=== PATIENT | female | born 1955 | race Caucasian/White ===

== ENCOUNTER 2021-07-01 19:52 | Inpatient (IN) | payer BC ==
[2021-07-01] MEDS ORDERED: REMDESIVIR 200 MG in Sodium Chloride 0.9% 250 ML IV ONE (19:55)
--- NOTE | 2021-07-01 20:06 | EDM.PDOC ---
<Azam Redding W - Last Filed: 07/01/21 21:04> ED HPI GENERAL MEDICAL PROBLEM - General Chief Complaint: Respiratory Problem Stated Complaint: hypoxia Time Seen by Provider: 07/01/21 19:52 Source of Information: Reports: Patient History Limitations: Reports: No Limitations - History of Present Illness INITIAL COMMENTS - FREE TEXT/NARRATIVE: Pt. presents to ER with complaints of cough, increased shortness of breath. She has been diagnosed with covid 19 yesterday. Pt. has been feeling poorly since last week, thought she had bronchitis. Pt. has not had her covid vaccination. She states that she does not want to be placed on a ventilator. Daughter states that the patient seems more fatigued. She has a home pulse oximeter. She was consistently in the 87% to 89% range today and today she was appearing more dyspneic and O2 sats were in the high 70s-low 80s range. Overall, pt. denies any chest pain. She states she has increased dyspnea when she is active. Denies any sore throat. No rhinorrhea. No nausea, vomiting, or diarrhea. Denies any substernal chest pain. No jaw, arm, neck or back pain. Onset: Today Onset Date: 07/01/21 Location: Reports: Chest, Generalized - Related Data Allergies Allergy/AdvReac Type Severity Reaction Status Date / Time No Known Allergies Allergy Verified 07/01/21 19:54 ED ROS GENERAL - Review of Systems Review Of Systems: See Below Constitutional: Reports: No Symptoms HEENT: Reports: No Symptoms Respiratory: Reports: Shortness of Breath, Cough Cardiovascular: Reports: No Symptoms Endocrine: Reports: No Symptoms GI/Abdominal: Reports: No Symptoms : Reports: No Symptoms Musculoskeletal: Reports: No Symptoms Skin: Reports: No Symptoms Neurological: Reports: No Symptoms Psychiatric: Reports: No Symptoms Hematologic/Lymphatic: Reports: No Symptoms Immunologic: Reports: No Symptoms ED EXAM, GENERAL - Physical Exam Exam: See Below Exam Limited By: No Limitations General Appearance: Alert, WD/WN, No Apparent Distress Throat/Mouth: Normal Inspection, Normal Lips, Normal Teeth, Normal Gums, Normal Oropharynx, Normal Voice, No Airway Compromise Head: Atraumatic, Normocephalic Neck: Normal Inspection, Supple, Non-Tender Respiratory/Chest: No Respiratory Distress, Decreased Breath Sounds Cardiovascular: Normal Peripheral Pulses, Regular Rate, Rhythm, No Edema, No JVD Peripheral Pulses: 4+: Radial (L) GI/Abdominal: Soft, Non-Tender, No Distention, No Mass (Female) Exam: Deferred Rectal (Female) Exam: Deferred Back Exam: Normal Inspection, Full Range of Motion Extremities: Normal Inspection, Normal Range of Motion, Non-Tender, No Pedal Edema, Normal Capillary Refill Neurological: Alert, Oriented, CN II-XII Intact, Normal Cognition, Normal Gait, Normal Reflexes, No Motor/Sensory Deficits Psychiatric: Normal Affect, Flat Affect Skin Exam: Warm, Dry, Intact, Pallor Departure - Departure Disposition: Admitted As Inpatient 67 Clinical Impression: COVID-19, Diabetes mellitus without complication, without long-term current use of insulin, Essential (primary) hypertension, Hyperlipidemia, Depression - Discharge Information Referrals: Kelin Prieto PA-C [Primary Care Provider] - Forms: ED Department Discharge <Román Brambila - Last Filed: 07/01/21 21:52> Course - Orders/Labs/Meds Orders: Active Orders 24 hr Category Date Time Status Nurse Communication: Isolation [RC] ASDIRECTED Care 07/01/21 19:56 Active Chest 1V Frontal [CR] Stat Exams 07/01/21 19:56 Taken BILIRUBIN DIRECT [CHEM] DAILY Lab 07/02/21 20:00 Ordered BILIRUBIN DIRECT [CHEM] DAILY Lab 07/03/21 20:00 Ordered BILIRUBIN DIRECT [CHEM] DAILY Lab 07/04/21 20:00 Ordered BILIRUBIN DIRECT [CHEM] DAILY Lab 07/05/21 20:00 Ordered BLOOD GAS ARTERIAL,POC [POC] Stat Lab 07/01/21 19:55 Ordered COMPREHENSIVE METABOLIC PN,CMP [CHEM] DAILY Lab 07/02/21 20:00 Ordered COMPREHENSIVE METABOLIC PN,CMP [CHEM] DAILY Lab 07/03/21 20:00 Ordered COMPREHENSIVE METABOLIC PN,CMP [CHEM] DAILY Lab 07/04/21 20:00 Ordered COMPREHENSIVE METABOLIC PN,CMP [CHEM] DAILY Lab 07/05/21 20:00 Ordered FERRITIN [CHEM] Routine Lab 07/01/21 20:30 Received PROCALCITONIN [REF] Stat Lab 07/01/21 20:30 Received UA W/ROMIE RFLX IF INDICATED [URIN] Routine Lab 07/01/21 19:55 Ordered Isolation [COMM] Stat Oth 09/17/21 19:55 Active Labs: Laboratory Tests 07/01/21 07/01/21 07/01/21 Range/Units 20:30 20:30 20:30 WBC 4.5 (4.0-10.2) K/uL RBC 4.92 (3.77-5.09) M/uL Hgb 13.8 (11.7-15.5) g/dL Hct 41.3 (34.0-46.0) % MCV 83.9 L (84.0-98.0) fL MCH 28.0 L (28.2-33.3) pg MCHC 33.4 (31.7-36.0) g/dL RDW 13.8 (11.2-14.1) % Plt Count 144 L (150-350) K/uL Neut % (Auto) 83.7 H (45.0-80.0) % Lymph % (Auto) 11.6 (10.0-50.0) % Stanton % (Auto) 4.5 (2.0-14.0) % Eos % (Auto) 0.2 (0.0-5.0) % Baso % (Auto) 0.0 (0.0-2.0) % Neut # (Auto) 3.74 (1.40-7.00) K/uL Lymph # (Auto) 0.52 (0.50-3.50) K/uL Stanton # (Auto) 0.20 (0.00-1.00) K/uL Eos # (Auto) 0.01 (0.00-0.50) K/uL Baso # (Auto) 0.00 (0.00-0.20) K/uL PT (9.5-12.0) SEC INR APTT 26.8 (24.5-32.8) SEC D-Dimer, Quantitative (0-400) ng/mL Sodium 133 L (136-145) mmol/L Potassium 4.6 (3.5-5.1) mmol/L Chloride 96 L (98-107) mmol/L Carbon Dioxide 28.7 (21.0-32.0) mmol/L Anion Gap 12.9 (7-15) meq/L BUN 13 (7-18) mg/dL Creatinine 0.88 (0.51-1.17) mg/dL Est Cr Clr Drug Dosing 53.43 mL/min Estimated GFR (MDRD) > 60 mL/min Glucose 467 H* (70-99) mg/dL Lactic Acid (0.4-2.0) mmol/L Calcium 8.7 (8.5-10.1) mg/dL Total Bilirubin 0.5 (0.2-1.0) mg/dL Direct Bilirubin 0.2 (0.0-0.2) mg/dL AST 84 H (15-37) U/L ALT 53 (12-78) U/L Alkaline Phosphatase 105 (46-116) IU/L Lactate Dehydrogenase 435 H (81-234) U/L Creatine Kinase 184 (26-308) U/L C-Reactive Protein 5.8 H (<=0.9) mg/dL Total Protein 7.0 (6.4-8.2) g/dL Albumin 3.1 L (3.4-5.0) g/dL 07/01/21 07/01/21 07/01/21 Range/Units 20:30 20:30 20:30 WBC (4.0-10.2) K/uL RBC (3.77-5.09) M/uL Hgb (11.7-15.5) g/dL Hct (34.0-46.0) % MCV (84.0-98.0) fL MCH (28.2-33.3) pg MCHC (31.7-36.0) g/dL RDW (11.2-14.1) % Plt Count (150-350) K/uL Neut % (Auto) (45.0-80.0) % Lymph % (Auto) (10.0-50.0) % Stanton % (Auto) (2.0-14.0) % Eos % (Auto) (0.0-5.0) % Baso % (Auto) (0.0-2.0) % Neut # (Auto) (1.40-7.00) K/uL Lymph # (Auto) (0.50-3.50) K/uL Stanton # (Auto) (0.00-1.00) K/uL Eos # (Auto) (0.00-0.50) K/uL Baso # (Auto) (0.00-0.20) K/uL PT 9.1 L (9.5-12.0) SEC INR 0.9 APTT (24.5-32.8) SEC D-Dimer, Quantitative 474 H (0-400) ng/mL Sodium (136-145) mmol/L Potassium (3.5-5.1) mmol/L Chloride (98-107) mmol/L Carbon Dioxide (21.0-32.0) mmol/L Anion Gap (7-15) meq/L BUN (7-18) mg/dL Creatinine (0.51-1.17) mg/dL Est Cr Clr Drug Dosing mL/min Estimated GFR (MDRD) mL/min Glucose (70-99) mg/dL Lactic Acid 2.2 H (0.4-2.0) mmol/L Calcium (8.5-10.1) mg/dL Total Bilirubin (0.2-1.0) mg/dL Direct Bilirubin (0.0-0.2) mg/dL AST (15-37) U/L ALT (12-78) U/L Alkaline Phosphatase (46-116) IU/L Lactate Dehydrogenase (81-234) U/L Creatine Kinase (26-308) U/L C-Reactive Protein (<=0.9) mg/dL Total Protein (6.4-8.2) g/dL Albumin (3.4-5.0) g/dL Meds: Medications Discontinued Medications Generic Name Dose Route Start Last Admin Trade Name Freq PRN Reason Stop Dose Admin Remdesivir 200 mg/ Sodium 250 mls @ 250 mls/hr 07/01/21 19:55 07/01/21 20:49 Chloride IV 07/01/21 20:54 250 mls/hr ONETIME ONE Administration - Re-Assessments/Exams Free Text/Narrative Re-Assessment/Exam: 07/01/21 21:47 Patient is picked up at shift change. She presented to the ED with shortness of breath worsening through the day. Diagnosed with COVID-19 yesterday. Medical history is positive for diabetes, hypertension, hypothyroidism, hyperlipidemia and depression. O2 sats improved significantly with supplemental oxygen per nasal cannula. Decision was made to admit for oxygen supplementation, monitoring, and remdesivir. She was given the initial dose of remdesivir in the ED. We will start her on her regular medications tomorrow. Departure - Departure Time of Disposition: :00 Condition: Fair - Discharge Information *PRESCRIPTION DRUG MONITORING PROGRAM REVIEWED*: Not Applicable *COPY OF PRESCRIPTION DRUG MONITORING REPORT IN PATIENT JACK: Not Applicable - Problem List & Annotations (1) COVID-19 SNOMED Code(s): 566484349 Code(s): U07.1 - COVID-19 Status: Acute Current Visit: Yes (2) Depression SNOMED Code(s): 05398986 Code(s): F32.9 - MAJOR DEPRESSIVE DISORDER, SINGLE EPISODE, UNSPECIFIED Status: Acute Current Visit: Yes (3) Diabetes mellitus without complication, without long-term current use of insulin SNOMED Code(s): 766900708 Code(s): E11.9 - TYPE 2 DIABETES MELLITUS WITHOUT COMPLICATIONS Status: Acute Current Visit: Yes (4) Essential (primary) hypertension SNOMED Code(s): 10853815 Code(s): I10 - ESSENTIAL (PRIMARY) HYPERTENSION Status: Acute Current Visit: Yes (5) Hyperlipidemia SNOMED Code(s): 16583957 Code(s): E78.5 - HYPERLIPIDEMIA, UNSPECIFIED Status: Acute Current Visit: Yes - Problem List Review Problem List Initiated/Reviewed/Updated: Yes - Assessment/Plan Plan: Admit to hospital as inpatient.
[2021-07-01 21:15] LABS: ANION GAP 12.9 meq/L (7-15); CHLORIDE,CL 96 mmol/L (98-107); SODIUM,NA 133 mmol/L (136-145)
[2021-07-01 22:09] LABS: PCO2 ARTERIAL,POC 38 mmHg (35-48)
[2021-07-01] MEDS ORDERED: Calcium Carbonate 500 MG Tab.Chew PO PRN (23:07)
[2021-07-01] MEDS ORDERED: Magnesium Hydroxide 400 MG/5 ML Susp 30 ML Cup PO PRN (23:07)
[2021-07-02] MEDS: Acetaminophen 325 MG Tab PO PRN ×4 (01:17→21:19)
[2021-07-02] MEDS ORDERED: 50% Dextrose in Water 50 ML Syringe IVPUSH PRN (07:22)
[2021-07-02] MEDS ORDERED: Glucagon,Human Recombinant 1 MG Vial IM PRN (07:22)
[2021-07-02] MEDS: metFORMIN 500 MG Tab PO SCH ×2 (08:51→16:58)
[2021-07-02] MEDS: Levothyroxine 112 MCG Tab PO SCH (08:52)
[2021-07-02] MEDS: glipiZIDE 5 MG Tab PO SCH ×2 (08:52→17:00)
[2021-07-02] MEDS: Insulin Regular, Human 100 Units/ML 3 ML Vial SUBCUT SCH ×3 (08:54→17:03)
[2021-07-02] MEDS: Lisinopril 10 MG Tab PO SCH (08:54)
[2021-07-02] MEDS ORDERED: Albuterol 0.021% 0.63 MG/3 ML Neb Soln NEB PRN (09:33)
--- NOTE | 2021-07-02 09:52 | PCM.PN ---
- General Info Date of Service: 07/02/21 Admission Dx/Problem (Free Text): covid-19 Subjective Update: Overall feeling better this morning. Denies significant shortness of breath. She is still complaining of frequent cough which is nonproductive. No fevers. No chest pain or tightness. She does complain of some mild abdominal pain secondary to coughing. O2 sats have been maintained in the low 90s with 12 L of oxygen. - Review of Systems General: Denies: Fever Pulmonary: Reports: Shortness of Breath, Cough Cardiovascular: Denies: Chest Pain, Lightheadedness Gastrointestinal: Reports: Abdominal Pain. Denies: Nausea, Vomiting Neurological: Denies: Confusion, Dizziness - Patient Data Vitals - Most Recent: Last Vital Signs Temp 36.8 C 07/02/21 08:00 Pulse 81 07/02/21 08:00 Resp 18 07/02/21 08:00 BP 128/62 07/02/21 08:54 Pulse Ox 88 L 07/02/21 08:00 Weight - Most Recent: 113.398 kg I&O - Last 24 Hours: Intake & Output 07/01/21 07/02/21 07/02/21 22:59 06:59 14:59 Intake Total 450 720 Output Total 600 Balance -150 720 Lab Results Last 24 Hours: Laboratory Results - last 24 hr 07/01/21 07/01/21 07/01/21 Range/Units 20:30 20:30 20:30 WBC 4.5 (4.0-10.2) K/uL RBC 4.92 (3.77-5.09) M/uL Hgb 13.8 (11.7-15.5) g/dL Hct 41.3 (34.0-46.0) % MCV 83.9 L (84.0-98.0) fL MCH 28.0 L (28.2-33.3) pg MCHC 33.4 (31.7-36.0) g/dL RDW 13.8 (11.2-14.1) % Plt Count 144 L (150-350) K/uL Neut % (Auto) 83.7 H (45.0-80.0) % Lymph % (Auto) 11.6 (10.0-50.0) % [place] % (Auto) 4.5 (2.0-14.0) % Eos % (Auto) 0.2 (0.0-5.0) % Baso % (Auto) 0.0 (0.0-2.0) % Neut # (Auto) 3.74 (1.40-7.00) K/uL Lymph # (Auto) 0.52 (0.50-3.50) K/uL [place] # (Auto) 0.20 (0.00-1.00) K/uL Eos # (Auto) 0.01 (0.00-0.50) K/uL Baso # (Auto) 0.00 (0.00-0.20) K/uL PT (9.5-12.0) SEC INR APTT 26.8 (24.5-32.8) SEC D-Dimer, Quantitative (0-400) ng/mL POC ABG pH (7.35-7.45) pH POC ABG pCO2 (35-48) mmHg POC ABG pO2 (83-108) mmHg POC ABG HCO3 (22-26) mmol/L POC ABG Total CO2 POC ABG O2 Sat (95-98) % POC ABG Base Excess (-2-3) mmol/L O2 Delivery Device Oxygen Flow Rate Sodium (136-145) mmol/L Potassium (3.5-5.1) mmol/L Chloride (98-107) mmol/L Carbon Dioxide (21.0-32.0) mmol/L Anion Gap (7-15) meq/L BUN (7-18) mg/dL Creatinine (0.51-1.17) mg/dL Est Cr Clr Drug Dosing mL/min Estimated GFR (MDRD) mL/min Glucose (70-99) mg/dL POC Glucose (70-99) mg/dL Lactic Acid (0.4-2.0) mmol/L Calcium (8.5-10.1) mg/dL Ferritin 2029 H (8-388) ng/mL Total Bilirubin (0.2-1.0) mg/dL Direct Bilirubin (0.0-0.2) mg/dL AST (15-37) U/L ALT (12-78) U/L Alkaline Phosphatase (46-116) IU/L Lactate Dehydrogenase (81-234) U/L Creatine Kinase (26-308) U/L C-Reactive Protein (<=0.9) mg/dL Total Protein (6.4-8.2) g/dL Albumin (3.4-5.0) g/dL Specimen Type Urine Color Urine Appearance Urine pH (5.0-9.0) Ur Specific [place] (1.005-1.030) Urine Protein (NEGATIVE) mg/dL Urine Glucose (UA) (NEGATIVE) mg/dL Urine Ketones (NEGATIVE) mg/dL Urine Occult Blood (NEGATIVE) Urine Nitrite (NEGATIVE) Urine Bilirubin (NEGATIVE) Urine Urobilinogen (0.2-1.0) E.U./dL Ur Leukocyte Esterase (NEGATIVE) Urine RBC /HPF Urine WBC /HPF Ur Epithelial Cells /LPF Urine Bacteria (NONE TO FEW) /HPF 07/01/21 07/01/21 07/01/21 Range/Units 20:30 20:30 20:30 WBC (4.0-10.2) K/uL RBC (3.77-5.09) M/uL Hgb (11.7-15.5) g/dL Hct (34.0-46.0) % MCV (84.0-98.0) fL MCH (28.2-33.3) pg MCHC (31.7-36.0) g/dL RDW (11.2-14.1) % Plt Count (150-350) K/uL Neut % (Auto) (45.0-80.0) % Lymph % (Auto) (10.0-50.0) % [place] % (Auto) (2.0-14.0) % Eos % (Auto) (0.0-5.0) % Baso % (Auto) (0.0-2.0) % Neut # (Auto) (1.40-7.00) K/uL Lymph # (Auto) (0.50-3.50) K/uL [place] # (Auto) (0.00-1.00) K/uL Eos # (Auto) (0.00-0.50) K/uL Baso # (Auto) (0.00-0.20) K/uL PT 9.1 L (9.5-12.0) SEC INR 0.9 APTT (24.5-32.8) SEC D-Dimer, Quantitative (0-400) ng/mL POC ABG pH (7.35-7.45) pH POC ABG pCO2 (35-48) mmHg POC ABG pO2 (83-108) mmHg POC ABG HCO3 (22-26) mmol/L POC ABG Total CO2 POC ABG O2 Sat (95-98) % POC ABG Base Excess (-2-3) mmol/L O2 Delivery Device Oxygen Flow Rate Sodium 133 L (136-145) mmol/L Potassium 4.6 (3.5-5.1) mmol/L Chloride 96 L (98-107) mmol/L Carbon Dioxide 28.7 (21.0-32.0) mmol/L Anion Gap 12.9 (7-15) meq/L BUN 13 (7-18) mg/dL Creatinine 0.88 (0.51-1.17) mg/dL Est Cr Clr Drug Dosing 53.43 mL/min Estimated GFR (MDRD) > 60 mL/min Glucose 467 H* (70-99) mg/dL POC Glucose (70-99) mg/dL Lactic Acid 2.2 H (0.4-2.0) mmol/L Calcium 8.7 (8.5-10.1) mg/dL Ferritin (8-388) ng/mL Total Bilirubin 0.5 (0.2-1.0) mg/dL Direct Bilirubin 0.2 (0.0-0.2) mg/dL AST 84 H (15-37) U/L ALT 53 (12-78) U/L Alkaline Phosphatase 105 (46-116) IU/L Lactate Dehydrogenase 435 H (81-234) U/L Creatine Kinase 184 (26-308) U/L C-Reactive Protein 5.8 H (<=0.9) mg/dL Total Protein 7.0 (6.4-8.2) g/dL Albumin 3.1 L (3.4-5.0) g/dL Specimen Type Urine Color Urine Appearance Urine pH (5.0-9.0) Ur Specific [place] (1.005-1.030) Urine Protein (NEGATIVE) mg/dL Urine Glucose (UA) (NEGATIVE) mg/dL Urine Ketones (NEGATIVE) mg/dL Urine Occult Blood (NEGATIVE) Urine Nitrite (NEGATIVE) Urine Bilirubin (NEGATIVE) Urine Urobilinogen (0.2-1.0) E.U./dL Ur Leukocyte Esterase (NEGATIVE) Urine RBC /HPF Urine WBC /HPF Ur Epithelial Cells /LPF Urine Bacteria (NONE TO FEW) /HPF 07/01/21 07/01/21 07/01/21 Range/Units 20:30 21:35 22:15 WBC (4.0-10.2) K/uL RBC (3.77-5.09) M/uL Hgb (11.7-15.5) g/dL Hct (34.0-46.0) % MCV (84.0-98.0) fL MCH (28.2-33.3) pg MCHC (31.7-36.0) g/dL RDW (11.2-14.1) % Plt Count (150-350) K/uL Neut % (Auto) (45.0-80.0) % Lymph % (Auto) (10.0-50.0) % [place] % (Auto) (2.0-14.0) % Eos % (Auto) (0.0-5.0) % Baso % (Auto) (0.0-2.0) % Neut # (Auto) (1.40-7.00) K/uL Lymph # (Auto) (0.50-3.50) K/uL [place] # (Auto) (0.00-1.00) K/uL Eos # (Auto) (0.00-0.50) K/uL Baso # (Auto) (0.00-0.20) K/uL PT (9.5-12.0) SEC INR APTT (24.5-32.8) SEC D-Dimer, Quantitative 474 H (0-400) ng/mL POC ABG pH 7.5 H (7.35-7.45) pH POC ABG pCO2 38 (35-48) mmHg POC ABG pO2 55 L* (83-108) mmHg POC ABG HCO3 26.6 H (22-26) mmol/L POC ABG Total CO2 TNP POC ABG O2 Sat 89.5 L (95-98) % POC ABG Base Excess 3 (-2-3) mmol/L O2 Delivery Device Not Reportable Oxygen Flow Rate Not Reportable Sodium (136-145) mmol/L Potassium (3.5-5.1) mmol/L Chloride (98-107) mmol/L Carbon Dioxide (21.0-32.0) mmol/L Anion Gap (7-15) meq/L BUN (7-18) mg/dL Creatinine (0.51-1.17) mg/dL Est Cr Clr Drug Dosing mL/min Estimated GFR (MDRD) mL/min Glucose (70-99) mg/dL POC Glucose (70-99) mg/dL Lactic Acid (0.4-2.0) mmol/L Calcium (8.5-10.1) mg/dL Ferritin (8-388) ng/mL Total Bilirubin (0.2-1.0) mg/dL Direct Bilirubin (0.0-0.2) mg/dL AST (15-37) U/L ALT (12-78) U/L Alkaline Phosphatase (46-116) IU/L Lactate Dehydrogenase (81-234) U/L Creatine Kinase (26-308) U/L C-Reactive Protein (<=0.9) mg/dL Total Protein (6.4-8.2) g/dL Albumin (3.4-5.0) g/dL Specimen Type Urincc Urine Color Yellow Urine Appearance Clear Urine pH 6.0 (5.0-9.0) Ur Specific [place] 1.015 (1.005-1.030) Urine Protein Trace H (NEGATIVE) mg/dL Urine Glucose (UA) >=1000 H (NEGATIVE) mg/dL Urine Ketones 15 H (NEGATIVE) mg/dL Urine Occult Blood Trace-lysed H (NEGATIVE) Urine Nitrite Negative (NEGATIVE) Urine Bilirubin Negative (NEGATIVE) Urine Urobilinogen 0.2 (0.2-1.0) E.U./dL Ur Leukocyte Esterase Negative (NEGATIVE) Urine RBC 0-5 /HPF Urine WBC Not seen /HPF Ur Epithelial Cells Few /LPF Urine Bacteria Occasional (NONE TO FEW) /HPF 07/02/21 07/02/21 07/02/21 Range/Units 07:30 07:30 07:34 WBC 5.5 (4.0-10.2) K/uL RBC 4.75 (3.77-5.09) M/uL Hgb 13.4 (11.7-15.5) g/dL Hct 40.1 (34.0-46.0) % MCV 84.4 (84.0-98.0) fL MCH 28.2 (28.2-33.3) pg MCHC 33.4 (31.7-36.0) g/dL RDW 13.8 (11.2-14.1) % Plt Count 157 (150-350) K/uL Neut % (Auto) 76.3 (45.0-80.0) % Lymph % (Auto) 19.8 (10.0-50.0) % [place] % (Auto) 3.3 (2.0-14.0) % Eos % (Auto) 0.4 (0.0-5.0) % Baso % (Auto) 0.2 (0.0-2.0) % Neut # (Auto) 4.17 (1.40-7.00) K/uL Lymph # (Auto) 1.08 (0.50-3.50) K/uL [place] # (Auto) 0.18 (0.00-1.00) K/uL Eos # (Auto) 0.02 (0.00-0.50) K/uL Baso # (Auto) 0.01 (0.00-0.20) K/uL PT (9.5-12.0) SEC INR APTT (24.5-32.8) SEC D-Dimer, Quantitative (0-400) ng/mL POC ABG pH (7.35-7.45) pH POC ABG pCO2 (35-48) mmHg POC ABG pO2 (83-108) mmHg POC ABG HCO3 (22-26) mmol/L POC ABG Total CO2 POC ABG O2 Sat (95-98) % POC ABG Base Excess (-2-3) mmol/L O2 Delivery Device Oxygen Flow Rate Sodium 133 L (136-145) mmol/L Potassium 4.2 (3.5-5.1) mmol/L Chloride 97 L (98-107) mmol/L Carbon Dioxide 31.7 (21.0-32.0) mmol/L Anion Gap 8.5 (7-15) meq/L BUN 10 (7-18) mg/dL Creatinine 0.77 (0.51-1.17) mg/dL Est Cr Clr Drug Dosing 61.06 mL/min Estimated GFR (MDRD) > 60 mL/min Glucose 297 H (70-99) mg/dL POC Glucose 271 H (70-99) mg/dL Lactic Acid (0.4-2.0) mmol/L Calcium 8.8 (8.5-10.1) mg/dL Ferritin (8-388) ng/mL Total Bilirubin (0.2-1.0) mg/dL Direct Bilirubin (0.0-0.2) mg/dL AST (15-37) U/L ALT (12-78) U/L Alkaline Phosphatase (46-116) IU/L Lactate Dehydrogenase (81-234) U/L Creatine Kinase (26-308) U/L C-Reactive Protein (<=0.9) mg/dL Total Protein (6.4-8.2) g/dL Albumin (3.4-5.0) g/dL Specimen Type Urine Color Urine Appearance Urine pH (5.0-9.0) Ur Specific [place] (1.005-1.030) Urine Protein (NEGATIVE) mg/dL Urine Glucose (UA) (NEGATIVE) mg/dL Urine Ketones (NEGATIVE) mg/dL Urine Occult Blood (NEGATIVE) Urine Nitrite (NEGATIVE) Urine Bilirubin (NEGATIVE) Urine Urobilinogen (0.2-1.0) E.U./dL Ur Leukocyte Esterase (NEGATIVE) Urine RBC /HPF Urine WBC /HPF Ur Epithelial Cells /LPF Urine Bacteria (NONE TO FEW) /HPF Med Orders - Current: Current Medications Acetaminophen (Acetaminophen 325 Mg Tab) 650 mg PO Q4H PRN PRN Reason: analgesia/fever Last Admin: 07/02/21 08:52 Dose: 650 mg Documented by: Albuterol (Albuterol 0.021% 0.63 Mg/3 Ml Neb Soln) 0.63 mg NEB Q4H PRN PRN Reason: Shortness of Breath Albuterol/Ipratropium (Albuterol/Ipratropium 4 Gm Inhalation [place]) 0 gm INH QID [facility] Calcium Carbonate/Glycine (Calcium Carbonate 500 Mg Tab.Chew) 500 mg PO Q4H PRN PRN Reason: Dyspepsia Dextrose/Water (50% Dextrose In Water 50 Ml Syringe) 50 ml IVPUSH ASDIRECTED PRN PRN Reason: Hypoglycemia Glipizide (Glipizide 5 Mg Tab) 5 mg PO BID [facility] Last Admin: 07/02/21 08:52 Dose: 5 mg Documented by: Glucagon (Glucagon,Human Recombinant 1 Mg Vial) 1 mg IM ASDIRECTED PRN PRN Reason: Hypoglycemia Insulin Human Regular (Insulin Regular, Human 100 Units/Ml 3 Ml Vial) 0 unit SUBCUT TIDAC [facility]; Protocol Last Admin: 07/02/21 08:54 Dose: 6 units Documented by: Levothyroxine Sodium (Levothyroxine 112 Mcg Tab) 112 mcg PO ACBREAKFAST [facility] Last Admin: 07/02/21 08:52 Dose: 112 mcg Documented by: Lisinopril (Lisinopril 10 Mg Tab) 10 mg PO DAILY [facility] Last Admin: 07/02/21 08:54 Dose: 10 mg Documented by: Magnesium Hydroxide (Magnesium Hydroxide 400 Mg/5 Ml Susp 30 Ml Cup) 30 ml PO BID PRN PRN Reason: Constipation Metformin HCl (Metformin 500 Mg Tab) 1,000 mg PO BIDMEALS [facility] Last Admin: 07/02/21 08:51 Dose: 1,000 mg Documented by: Discontinued Medications Remdesivir 200 mg/ Sodium (Chloride) 250 mls @ 250 mls/hr IV ONETIME ONE Stop: 07/01/21 20:54 Last Admin: 07/01/21 20:49 Dose: 250 mls/hr Documented by: - Exam Quality Assessment: Supplemental Oxygen General: Alert, Oriented Lungs: Normal Respiratory Effort, Rhonchi, Wheezing Cardiovascular: Regular Rate, Regular Rhythm GI/Abdominal Exam: Normal Bowel Sounds, Soft, Non-Tender Skin: Warm, Dry - Patient Data Lab Results Last 24 hrs: Laboratory Results - last 24 hr 07/01/21 07/01/21 07/01/21 Range/Units 20:30 20:30 20:30 WBC 4.5 (4.0-10.2) K/uL RBC 4.92 (3.77-5.09) M/uL Hgb 13.8 (11.7-15.5) g/dL Hct 41.3 (34.0-46.0) % MCV 83.9 L (84.0-98.0) fL MCH 28.0 L (28.2-33.3) pg MCHC 33.4 (31.7-36.0) g/dL RDW 13.8 (11.2-14.1) % Plt Count 144 L (150-350) K/uL Neut % (Auto) 83.7 H (45.0-80.0) % Lymph % (Auto) 11.6 (10.0-50.0) % [place] % (Auto) 4.5 (2.0-14.0) % Eos % (Auto) 0.2 (0.0-5.0) % Baso % (Auto) 0.0 (0.0-2.0) % Neut # (Auto) 3.74 (1.40-7.00) K/uL Lymph # (Auto) 0.52 (0.50-3.50) K/uL [place] # (Auto) 0.20 (0.00-1.00) K/uL Eos # (Auto) 0.01 (0.00-0.50) K/uL Baso # (Auto) 0.00 (0.00-0.20) K/uL PT (9.5-12.0) SEC INR APTT 26.8 (24.5-32.8) SEC D-Dimer, Quantitative (0-400) ng/mL POC ABG pH (7.35-7.45) pH POC ABG pCO2 (35-48) mmHg POC ABG pO2 (83-108) mmHg POC ABG HCO3 (22-26) mmol/L POC ABG Total CO2 POC ABG O2 Sat (95-98) % POC ABG Base Excess (-2-3) mmol/L O2 Delivery Device Oxygen Flow Rate Sodium (136-145) mmol/L Potassium (3.5-5.1) mmol/L Chloride (98-107) mmol/L Carbon Dioxide (21.0-32.0) mmol/L Anion Gap (7-15) meq/L BUN (7-18) mg/dL Creatinine (0.51-1.17) mg/dL Est Cr Clr Drug Dosing mL/min Estimated GFR (MDRD) mL/min Glucose (70-99) mg/dL POC Glucose (70-99) mg/dL Lactic Acid (0.4-2.0) mmol/L Calcium (8.5-10.1) mg/dL Ferritin 2029 H (8-388) ng/mL Total Bilirubin (0.2-1.0) mg/dL Direct Bilirubin (0.0-0.2) mg/dL AST (15-37) U/L ALT (12-78) U/L Alkaline Phosphatase (46-116) IU/L Lactate Dehydrogenase (81-234) U/L Creatine Kinase (26-308) U/L C-Reactive Protein (<=0.9) mg/dL Total Protein (6.4-8.2) g/dL Albumin (3.4-5.0) g/dL Specimen Type Urine Color Urine Appearance Urine pH (5.0-9.0) Ur Specific [place] (1.005-1.030) Urine Protein (NEGATIVE) mg/dL Urine Glucose (UA) (NEGATIVE) mg/dL Urine Ketones (NEGATIVE) mg/dL Urine Occult Blood (NEGATIVE) Urine Nitrite (NEGATIVE) Urine Bilirubin (NEGATIVE) Urine Urobilinogen (0.2-1.0) E.U./dL Ur Leukocyte Esterase (NEGATIVE) Urine RBC /HPF Urine WBC /HPF Ur Epithelial Cells /LPF Urine Bacteria (NONE TO FEW) /HPF 07/01/21 07/01/21 07/01/21 Range/Units 20:30 20:30 20:30 WBC (4.0-10.2) K/uL RBC (3.77-5.09) M/uL Hgb (11.7-15.5) g/dL Hct (34.0-46.0) % MCV (84.0-98.0) fL MCH (28.2-33.3) pg MCHC (31.7-36.0) g/dL RDW (11.2-14.1) % Plt Count (150-350) K/uL Neut % (Auto) (45.0-80.0) % Lymph % (Auto) (10.0-50.0) % [place] % (Auto) (2.0-14.0) % Eos % (Auto) (0.0-5.0) % Baso % (Auto) (0.0-2.0) % Neut # (Auto) (1.40-7.00) K/uL Lymph # (Auto) (0.50-3.50) K/uL [place] # (Auto) (0.00-1.00) K/uL Eos # (Auto) (0.00-0.50) K/uL Baso # (Auto) (0.00-0.20) K/uL PT 9.1 L (9.5-12.0) SEC INR 0.9 APTT (24.5-32.8) SEC D-Dimer, Quantitative (0-400) ng/mL POC ABG pH (7.35-7.45) pH POC ABG pCO2 (35-48) mmHg POC ABG pO2 (83-108) mmHg POC ABG HCO3 (22-26) mmol/L POC ABG Total CO2 POC ABG O2 Sat (95-98) % POC ABG Base Excess (-2-3) mmol/L O2 Delivery Device Oxygen Flow Rate Sodium 133 L (136-145) mmol/L Potassium 4.6 (3.5-5.1) mmol/L Chloride 96 L (98-107) mmol/L Carbon Dioxide 28.7 (21.0-32.0) mmol/L Anion Gap 12.9 (7-15) meq/L BUN 13 (7-18) mg/dL Creatinine 0.88 (0.51-1.17) mg/dL Est Cr Clr Drug Dosing 53.43 mL/min Estimated GFR (MDRD) > 60 mL/min Glucose 467 H* (70-99) mg/dL POC Glucose (70-99) mg/dL Lactic Acid 2.2 H (0.4-2.0) mmol/L Calcium 8.7 (8.5-10.1) mg/dL Ferritin (8-388) ng/mL Total Bilirubin 0.5 (0.2-1.0) mg/dL Direct Bilirubin 0.2 (0.0-0.2) mg/dL AST 84 H (15-37) U/L ALT 53 (12-78) U/L Alkaline Phosphatase 105 (46-116) IU/L Lactate Dehydrogenase 435 H (81-234) U/L Creatine Kinase 184 (26-308) U/L C-Reactive Protein 5.8 H (<=0.9) mg/dL Total Protein 7.0 (6.4-8.2) g/dL Albumin 3.1 L (3.4-5.0) g/dL Specimen Type Urine Color Urine Appearance Urine pH (5.0-9.0) Ur Specific [place] (1.005-1.030) Urine Protein (NEGATIVE) mg/dL Urine Glucose (UA) (NEGATIVE) mg/dL Urine Ketones (NEGATIVE) mg/dL Urine Occult Blood (NEGATIVE) Urine Nitrite (NEGATIVE) Urine Bilirubin (NEGATIVE) Urine Urobilinogen (0.2-1.0) E.U./dL Ur Leukocyte Esterase (NEGATIVE) Urine RBC /HPF Urine WBC /HPF Ur Epithelial Cells /LPF Urine Bacteria (NONE TO FEW) /HPF 07/01/21 07/01/21 07/01/21 Range/Units 20:30 21:35 22:15 WBC (4.0-10.2) K/uL RBC (3.77-5.09) M/uL Hgb (11.7-15.5) g/dL Hct (34.0-46.0) % MCV (84.0-98.0) fL MCH (28.2-33.3) pg MCHC (31.7-36.0) g/dL RDW (11.2-14.1) % Plt Count (150-350) K/uL Neut % (Auto) (45.0-80.0) % Lymph % (Auto) (10.0-50.0) % [place] % (Auto) (2.0-14.0) % Eos % (Auto) (0.0-5.0) % Baso % (Auto) (0.0-2.0) % Neut # (Auto) (1.40-7.00) K/uL Lymph # (Auto) (0.50-3.50) K/uL [place] # (Auto) (0.00-1.00) K/uL Eos # (Auto) (0.00-0.50) K/uL Baso # (Auto) (0.00-0.20) K/uL PT (9.5-12.0) SEC INR APTT (24.5-32.8) SEC D-Dimer, Quantitative 474 H (0-400) ng/mL POC ABG pH 7.5 H (7.35-7.45) pH POC ABG pCO2 38 (35-48) mmHg POC ABG pO2 55 L* (83-108) mmHg POC ABG HCO3 26.6 H (22-26) mmol/L POC ABG Total CO2 TNP POC ABG O2 Sat 89.5 L (95-98) % POC ABG Base Excess 3 (-2-3) mmol/L O2 Delivery Device Not Reportable Oxygen Flow Rate Not Reportable Sodium (136-145) mmol/L Potassium (3.5-5.1) mmol/L Chloride (98-107) mmol/L Carbon Dioxide (21.0-32.0) mmol/L Anion Gap (7-15) meq/L BUN (7-18) mg/dL Creatinine (0.51-1.17) mg/dL Est Cr Clr Drug Dosing mL/min Estimated GFR (MDRD) mL/min Glucose (70-99) mg/dL POC Glucose (70-99) mg/dL Lactic Acid (0.4-2.0) mmol/L Calcium (8.5-10.1) mg/dL Ferritin (8-388) ng/mL Total Bilirubin (0.2-1.0) mg/dL Direct Bilirubin (0.0-0.2) mg/dL AST (15-37) U/L ALT (12-78) U/L Alkaline Phosphatase (46-116) IU/L Lactate Dehydrogenase (81-234) U/L Creatine Kinase (26-308) U/L C-Reactive Protein (<=0.9) mg/dL Total Protein (6.4-8.2) g/dL Albumin (3.4-5.0) g/dL Specimen Type Urincc Urine Color Yellow Urine Appearance Clear Urine pH 6.0 (5.0-9.0) Ur Specific [place] 1.015 (1.005-1.030) Urine Protein Trace H (NEGATIVE) mg/dL Urine Glucose (UA) >=1000 H (NEGATIVE) mg/dL Urine Ketones 15 H (NEGATIVE) mg/dL Urine Occult Blood Trace-lysed H (NEGATIVE) Urine Nitrite Negative (NEGATIVE) Urine Bilirubin Negative (NEGATIVE) Urine Urobilinogen 0.2 (0.2-1.0) E.U./dL Ur Leukocyte Esterase Negative (NEGATIVE) Urine RBC 0-5 /HPF Urine WBC Not seen /HPF Ur Epithelial Cells Few /LPF Urine Bacteria Occasional (NONE TO FEW) /HPF 07/02/21 07/02/21 07/02/21 Range/Units 07:30 07:30 07:34 WBC 5.5 (4.0-10.2) K/uL RBC 4.75 (3.77-5.09) M/uL Hgb 13.4 (11.7-15.5) g/dL Hct 40.1 (34.0-46.0) % MCV 84.4 (84.0-98.0) fL MCH 28.2 (28.2-33.3) pg MCHC 33.4 (31.7-36.0) g/dL RDW 13.8 (11.2-14.1) % Plt Count 157 (150-350) K/uL Neut % (Auto) 76.3 (45.0-80.0) % Lymph % (Auto) 19.8 (10.0-50.0) % [place] % (Auto) 3.3 (2.0-14.0) % Eos % (Auto) 0.4 (0.0-5.0) % Baso % (Auto) 0.2 (0.0-2.0) % Neut # (Auto) 4.17 (1.40-7.00) K/uL Lymph # (Auto) 1.08 (0.50-3.50) K/uL [place] # (Auto) 0.18 (0.00-1.00) K/uL Eos # (Auto) 0.02 (0.00-0.50) K/uL Baso # (Auto) 0.01 (0.00-0.20) K/uL PT (9.5-12.0) SEC INR APTT (24.5-32.8) SEC D-Dimer, Quantitative (0-400) ng/mL POC ABG pH (7.35-7.45) pH POC ABG pCO2 (35-48) mmHg POC ABG pO2 (83-108) mmHg POC ABG HCO3 (22-26) mmol/L POC ABG Total CO2 POC ABG O2 Sat (95-98) % POC ABG Base Excess (-2-3) mmol/L O2 Delivery Device Oxygen Flow Rate Sodium 133 L (136-145) mmol/L Potassium 4.2 (3.5-5.1) mmol/L Chloride 97 L (98-107) mmol/L Carbon Dioxide 31.7 (21.0-32.0) mmol/L Anion Gap 8.5 (7-15) meq/L BUN 10 (7-18) mg/dL Creatinine 0.77 (0.51-1.17) mg/dL Est Cr Clr Drug Dosing 61.06 mL/min Estimated GFR (MDRD) > 60 mL/min Glucose 297 H (70-99) mg/dL POC Glucose 271 H (70-99) mg/dL Lactic Acid (0.4-2.0) mmol/L Calcium 8.8 (8.5-10.1) mg/dL Ferritin (8-388) ng/mL Total Bilirubin (0.2-1.0) mg/dL Direct Bilirubin (0.0-0.2) mg/dL AST (15-37) U/L ALT (12-78) U/L Alkaline Phosphatase (46-116) IU/L Lactate Dehydrogenase (81-234) U/L Creatine Kinase (26-308) U/L C-Reactive Protein (<=0.9) mg/dL Total Protein (6.4-8.2) g/dL Albumin (3.4-5.0) g/dL Specimen Type Urine Color Urine Appearance Urine pH (5.0-9.0) Ur Specific [place] (1.005-1.030) Urine Protein (NEGATIVE) mg/dL Urine Glucose (UA) (NEGATIVE) mg/dL Urine Ketones (NEGATIVE) mg/dL Urine Occult Blood (NEGATIVE) Urine Nitrite (NEGATIVE) Urine Bilirubin (NEGATIVE) Urine Urobilinogen (0.2-1.0) E.U./dL Ur Leukocyte Esterase (NEGATIVE) Urine RBC /HPF Urine WBC /HPF Ur Epithelial Cells /LPF Urine Bacteria (NONE TO FEW) /HPF Result Diagrams: 07/02/21 07:30 07/02/21 07:30 Sepsis Event Note - Evaluation Sepsis Screening Result: No Definite Risk - Focused Exam Vital Signs: Vital Signs Temp Pulse Resp BP BP Pulse Ox 07/02/21 08:54 128/62 07/02/21 08:00 36.8 C 81 18 128/62 88 L 07/02/21 05:44 36.6 C 80 18 126/74 92 L 07/02/21 02:24 36.1 C 82 20 133/63 90 L - Problem List & Annotations (1) COVID-19 SNOMED Code(s): 633030781 Code(s): U07.1 - COVID-19 Status: Acute Current Visit: Yes (2) Depression SNOMED Code(s): 81230601 Code(s): F32.9 - MAJOR DEPRESSIVE DISORDER, SINGLE EPISODE, UNSPECIFIED Status: Acute Current Visit: Yes (3) Diabetes mellitus without complication, without long-term current use of insulin SNOMED Code(s): 056931711 Code(s): E11.9 - TYPE 2 DIABETES MELLITUS WITHOUT COMPLICATIONS Status: Acute Current Visit: Yes (4) Essential (primary) hypertension SNOMED Code(s): 58563762 Code(s): I10 - ESSENTIAL (PRIMARY) HYPERTENSION Status: Acute Current Visit: Yes (5) Hyperlipidemia SNOMED Code(s): 41178193 Code(s): E78.5 - HYPERLIPIDEMIA, UNSPECIFIED Status: Acute Current Visit: Yes - Problem List Review Problem List Initiated/Reviewed/Updated: Yes - My Orders Last 24 Hours: My Active Orders 07/01/21 23:03 Patient Status [ADT] Routine Vital Signs [RC] Q4HR 07/01/21 23:07 Acetaminophen [TylenoL] 650 mg PO Q4H PRN Calcium Carbonate [Tums] 500 mg PO Q4H PRN Magnesium Hydroxide [Milk of Magnesia] 30 ml PO BID PRN DVT/VTE Prophylaxis Reflex [OM.PC] Routine Resuscitation Status Routine 07/01/21 23:09 Intake and Output [RC] 06,18 Oxygen Therapy [RC] 2300 07/01/21 23:11 Antiembolic Devices [RC] 08,20 VTE/DVT Education [RC] PER UNIT ROUTINE 07/01/21 23:19 Glucose [Blood Glucose Check, Bedside] [RC] TIDAC 07/02/21 07:22 Dextrose 50% in Water 50 ml IVPUSH ASDIRECTED PRN Glucagon,Human Recombinant [GlucaGen] 1 mg IM ASDIRECTED PRN 07/02/21 Breakfast Regular Diet [DIET] Insulin Regular, Human [HumuLIN R] See Protocol SUBCUT TIDAC Levothyroxine 112 mcg PO ACBREAKFAST metFORMIN [Glucophage] 1,000 mg PO BIDMEALS 07/02/21 08:00 glipiZIDE [Glucotrol] 5 mg PO BID lisinopriL [Prinivil] 10 mg PO DAILY 07/02/21 09:33 RT Post Treatment Assessment [RC] Click to Edit RT Pre-Treatment Assessment [RC] Click to Edit Albuterol [Proventil Neb Soln] 0.63 mg NEB Q4H PRN 07/02/21 09:34 RT Aerosol Therapy [RC] ASDIRECTED 07/02/21 12:00 Albuterol/Ipratropium [Combivent Respimat] 0 gm INH QID - Assessment Assessment:: Covid-19. Breathing improved today. - Plan Plan:: Continue supplemental oxygen and remdesivir. Wean oxygen as tolerated to keep O2 sats above 90. Add dexamethasone 6 mg PO daily. DuoNeb inhaler 3 times daily. Albuterol inhaler every 4 hours as needed. Continue blood sugar checks and insulin as needed per sliding scale. Start Lovenox for DVT prophylaxis.
[2021-07-02] MEDS ORDERED: Dexamethasone 2 MG Tab PO SCH (10:00)
[2021-07-02 10:51] LABS: ANION GAP 8.5 meq/L (7-15); CHLORIDE,CL 97 mmol/L (98-107); SODIUM,NA 133 mmol/L (136-145)
[2021-07-02] MEDS: REMDESIVIR 100 MG in Sodium Chloride 0.9% 100 ML IV SCH (12:20)
[2021-07-02] MEDS: Dexamethasone 2 MG Tab PO SCH (12:26)
[2021-07-02] MEDS: Enoxaparin 40 MG/0.4 ML Syringe SUBCUT SCH ×2 (12:27→21:19)
[2021-07-02] MEDS: Albuterol/Ipratropium 4 GM Inhalation Spray INH SCH ×3 (12:28→21:19)
[2021-07-02] MEDS: Sodium Chloride 0.9% 10 ML Syringe FLUSH PRN (13:34)
[2021-07-02] MEDS: Benzonatate 100 MG Cap PO SCH (17:00)
[2021-07-03 08:03] LABS: ANION GAP 6.5 meq/L (7-15); CHLORIDE,CL 100 mmol/L (98-107); SODIUM,NA 137 mmol/L (136-145)
[2021-07-03] MEDS: Albuterol/Ipratropium 4 GM Inhalation Spray INH SCH ×4 (08:10→21:04)
[2021-07-03] MEDS: glipiZIDE 5 MG Tab PO SCH ×2 (08:24→17:15)
[2021-07-03] MEDS: metFORMIN 500 MG Tab PO SCH ×2 (08:24→17:15)
[2021-07-03] MEDS: Levothyroxine 112 MCG Tab PO SCH (08:24)
[2021-07-03] MEDS: Acetaminophen 325 MG Tab PO PRN ×3 (08:26→21:01)
[2021-07-03] MEDS: Lisinopril 10 MG Tab PO SCH (08:30)
[2021-07-03] MEDS: Albuterol 6.7 GM Inhaler INH PRN ×2 (08:30→17:17)
[2021-07-03] MEDS: Benzonatate 100 MG Cap PO SCH ×3 (08:31→17:16)
[2021-07-03] MEDS: Dexamethasone 2 MG Tab PO SCH (08:31)
[2021-07-03] MEDS: Insulin Regular, Human 100 Units/ML 3 ML Vial SUBCUT SCH ×3 (08:32→17:18)
[2021-07-03] MEDS: Sodium Chloride 0.9% 10 ML Syringe FLUSH PRN ×2 (08:36→10:08)
--- NOTE | 2021-07-03 09:33 | PCM.PN ---
- General Info Date of Service: 07/03/21 Admission Dx/Problem (Free Text): covid-19 Subjective Update: Overall doing okay. Patient states she feels slightly less short of breath today but still has a persistent cough. O2 sats however dropped down into the 70s, now in the low to mid 80s on 15 L oxygen per rebreathing mask. No fever or chills. No chest pain or tightness. No abdominal pain, nausea or vomiting. - Patient Data Vitals - Most Recent: Last Vital Signs Temp 36.4 C 07/03/21 08:00 Pulse 78 07/03/21 08:00 Resp 28 H 07/03/21 08:00 BP 127/66 07/03/21 08:30 Pulse Ox 74 L 07/03/21 08:05 Weight - Most Recent: 113.398 kg I&O - Last 24 Hours: Intake & Output 07/02/21 07/03/21 07/03/21 22:59 06:59 14:59 Intake Total 100 500 Output Total 400 Balance -300 500 Lab Results Last 24 Hours: Laboratory Results - last 24 hr 07/02/21 07/02/21 07/02/21 Range/Units 07:30 07:30 07:30 WBC (4.0-10.2) K/uL RBC (3.77-5.09) M/uL Hgb (11.7-15.5) g/dL Hct (34.0-46.0) % MCV (84.0-98.0) fL MCH (28.2-33.3) pg MCHC (31.7-36.0) g/dL RDW (11.2-14.1) % Plt Count (150-350) K/uL Neut % (Auto) (45.0-80.0) % Lymph % (Auto) (10.0-50.0) % [place] % (Auto) (2.0-14.0) % Eos % (Auto) (0.0-5.0) % Baso % (Auto) (0.0-2.0) % Neut # (Auto) (1.40-7.00) K/uL Lymph # (Auto) (0.50-3.50) K/uL [place] # (Auto) (0.00-1.00) K/uL Eos # (Auto) (0.00-0.50) K/uL Baso # (Auto) (0.00-0.20) K/uL Sodium Cancelled 133 L Potassium Cancelled 4.2 Chloride Cancelled 97 L Carbon Dioxide Cancelled 31.7 Anion Gap Cancelled 8.5 BUN Cancelled 10 Creatinine Cancelled 0.77 Est Cr Clr Drug Dosing Cancelled 61.06 Estimated GFR (MDRD) Cancelled > 60 Glucose Cancelled 297 H POC Glucose (70-99) mg/dL Lactic Acid (0.4-2.0) mmol/L Calcium Cancelled 8.8 Total Bilirubin 0.4 (0.2-1.0) mg/dL Direct Bilirubin 0.1 Cancelled (0.0-0.2) mg/dL AST 67 H (15-37) U/L ALT 49 (12-78) U/L Alkaline Phosphatase 94 (46-116) IU/L Total Protein 7.2 (6.4-8.2) g/dL Albumin 2.9 L (3.4-5.0) g/dL 07/02/21 07/02/21 07/03/21 Range/Units 12:07 16:56 07:35 WBC 3.7 L (4.0-10.2) K/uL RBC 4.88 (3.77-5.09) M/uL Hgb 13.6 (11.7-15.5) g/dL Hct 41.2 (34.0-46.0) % MCV 84.4 (84.0-98.0) fL MCH 27.9 L (28.2-33.3) pg MCHC 33.0 (31.7-36.0) g/dL RDW 13.8 (11.2-14.1) % Plt Count 180 (150-350) K/uL Neut % (Auto) 77.8 (45.0-80.0) % Lymph % (Auto) 16.3 (10.0-50.0) % [place] % (Auto) 5.6 (2.0-14.0) % Eos % (Auto) 0.3 (0.0-5.0) % Baso % (Auto) 0.0 (0.0-2.0) % Neut # (Auto) 2.91 (1.40-7.00) K/uL Lymph # (Auto) 0.61 (0.50-3.50) K/uL [place] # (Auto) 0.21 (0.00-1.00) K/uL Eos # (Auto) 0.01 (0.00-0.50) K/uL Baso # (Auto) 0.00 (0.00-0.20) K/uL Sodium Potassium Chloride Carbon Dioxide Anion Gap BUN Creatinine Est Cr Clr Drug Dosing Estimated GFR (MDRD) Glucose POC Glucose 298 H 358 H (70-99) mg/dL Lactic Acid (0.4-2.0) mmol/L Calcium Total Bilirubin (0.2-1.0) mg/dL Direct Bilirubin (0.0-0.2) mg/dL AST (15-37) U/L ALT (12-78) U/L Alkaline Phosphatase (46-116) IU/L Total Protein (6.4-8.2) g/dL Albumin (3.4-5.0) g/dL 07/03/21 07/03/21 07/03/21 Range/Units 07:35 07:35 07:40 WBC (4.0-10.2) K/uL RBC (3.77-5.09) M/uL Hgb (11.7-15.5) g/dL Hct (34.0-46.0) % MCV (84.0-98.0) fL MCH (28.2-33.3) pg MCHC (31.7-36.0) g/dL RDW (11.2-14.1) % Plt Count (150-350) K/uL Neut % (Auto) (45.0-80.0) % Lymph % (Auto) (10.0-50.0) % [place] % (Auto) (2.0-14.0) % Eos % (Auto) (0.0-5.0) % Baso % (Auto) (0.0-2.0) % Neut # (Auto) (1.40-7.00) K/uL Lymph # (Auto) (0.50-3.50) K/uL [place] # (Auto) (0.00-1.00) K/uL Eos # (Auto) (0.00-0.50) K/uL Baso # (Auto) (0.00-0.20) K/uL Sodium 137 Potassium 4.7 Chloride 100 Carbon Dioxide 30.5 Anion Gap 6.5 L BUN 16 Creatinine 0.73 Est Cr Clr Drug Dosing 64.40 Estimated GFR (MDRD) > 60 Glucose 319 H POC Glucose 296 H (70-99) mg/dL Lactic Acid 1.7 (0.4-2.0) mmol/L Calcium 9.2 Total Bilirubin 0.4 (0.2-1.0) mg/dL Direct Bilirubin 0.1 (0.0-0.2) mg/dL AST 55 H (15-37) U/L ALT 45 (12-78) U/L Alkaline Phosphatase 95 (46-116) IU/L Total Protein 7.1 (6.4-8.2) g/dL Albumin 2.7 L (3.4-5.0) g/dL Med Orders - Current: Current Medications Acetaminophen (Acetaminophen 325 Mg Tab) 650 mg PO Q4H PRN PRN Reason: analgesia/fever Last Admin: 07/03/21 08:26 Dose: 650 mg Documented by: Albuterol (Albuterol 6.7 Gm Inhaler) 0 gm INH Q4H PRN PRN Reason: Shortness of Breath Last Admin: 07/03/21 08:30 Dose: 2 inhaler Documented by: Albuterol/Ipratropium (Albuterol/Ipratropium 4 Gm Inhalation [place]) 0 gm INH QID [facility] Last Admin: 07/03/21 08:10 Dose: 2 inhalation Documented by: Benzonatate (Benzonatate 100 Mg Cap) 100 mg PO TID [facility] Last Admin: 07/03/21 08:31 Dose: 100 mg Documented by: Calcium Carbonate/Glycine (Calcium Carbonate 500 Mg Tab.Chew) 500 mg PO Q4H PRN PRN Reason: Dyspepsia Dexamethasone (Dexamethasone 2 Mg Tab) 6 mg PO DAILY [facility] Last Admin: 07/03/21 08:31 Dose: 6 mg Documented by: Dextrose/Water (50% Dextrose In Water 50 Ml Syringe) 50 ml IVPUSH ASDIRECTED PRN PRN Reason: Hypoglycemia Enoxaparin Sodium (Enoxaparin 40 Mg/0.4 Ml Syringe) 40 mg SUBCUT Q12H [facility] Last Admin: 07/02/21 21:19 Dose: 40 mg Documented by: Glipizide (Glipizide 5 Mg Tab) 5 mg PO BID [facility] Last Admin: 07/03/21 08:24 Dose: 5 mg Documented by: Glucagon (Glucagon,Human Recombinant 1 Mg Vial) 1 mg IM ASDIRECTED PRN PRN Reason: Hypoglycemia Remdesivir 100 mg/ Sodium (Chloride) 100 mls @ 100 mls/hr IV Q24H [facility] Last Admin: 07/02/21 12:20 Dose: 100 mls/hr Documented by: Insulin Human Regular (Insulin Regular, Human 100 Units/Ml 3 Ml Vial) 0 unit SUBCUT TIDAC [facility]; Protocol Last Admin: 07/03/21 08:32 Dose: 6 units Documented by: Levothyroxine Sodium (Levothyroxine 112 Mcg Tab) 112 mcg PO ACBREAKFAST [facility] Last Admin: 07/03/21 08:24 Dose: 112 mcg Documented by: Lisinopril (Lisinopril 10 Mg Tab) 10 mg PO DAILY [facility] Last Admin: 07/03/21 08:30 Dose: 10 mg Documented by: Magnesium Hydroxide (Magnesium Hydroxide 400 Mg/5 Ml Susp 30 Ml Cup) 30 ml PO BID PRN PRN Reason: Constipation Metformin HCl (Metformin 500 Mg Tab) 1,000 mg PO BIDMEALS [facility] Last Admin: 07/03/21 08:24 Dose: 1,000 mg Documented by: Sodium Chloride (Sodium Chloride 0.9% 10 Ml Syringe) 10 ml FLUSH ASDIRECTED PRN PRN Reason: to keep open Last Admin: 07/03/21 08:36 Dose: 10 ml Documented by: Discontinued Medications Dexamethasone (Dexamethasone 2 Mg Tab) 2 mg PO BID [facility] Last Admin: 07/02/21 11:51 Dose: Not Given Documented by: Remdesivir 200 mg/ Sodium (Chloride) 250 mls @ 250 mls/hr IV ONETIME ONE Stop: 07/01/21 20:54 Last Admin: 07/01/21 20:49 Dose: 250 mls/hr Documented by: - Exam General: Alert, Oriented Lungs: Clear to Auscultation, Decreased Breath Sounds Cardiovascular: Regular Rate, Regular Rhythm, No Murmurs GI/Abdominal Exam: Normal Bowel Sounds, Soft, Non-Tender Extremities: No Pedal Edema Physical Findings Comments:: Chest x-ray appears essentially unchanged from x-ray done on admission. - Patient Data Lab Results Last 24 hrs: Laboratory Results - last 24 hr 07/02/21 07/02/21 07/02/21 Range/Units 07:30 07:30 07:30 WBC (4.0-10.2) K/uL RBC (3.77-5.09) M/uL Hgb (11.7-15.5) g/dL Hct (34.0-46.0) % MCV (84.0-98.0) fL MCH (28.2-33.3) pg MCHC (31.7-36.0) g/dL RDW (11.2-14.1) % Plt Count (150-350) K/uL Neut % (Auto) (45.0-80.0) % Lymph % (Auto) (10.0-50.0) % [place] % (Auto) (2.0-14.0) % Eos % (Auto) (0.0-5.0) % Baso % (Auto) (0.0-2.0) % Neut # (Auto) (1.40-7.00) K/uL Lymph # (Auto) (0.50-3.50) K/uL [place] # (Auto) (0.00-1.00) K/uL Eos # (Auto) (0.00-0.50) K/uL Baso # (Auto) (0.00-0.20) K/uL Sodium Cancelled 133 L Potassium Cancelled 4.2 Chloride Cancelled 97 L Carbon Dioxide Cancelled 31.7 Anion Gap Cancelled 8.5 BUN Cancelled 10 Creatinine Cancelled 0.77 Est Cr Clr Drug Dosing Cancelled 61.06 Estimated GFR (MDRD) Cancelled > 60 Glucose Cancelled 297 H POC Glucose (70-99) mg/dL Lactic Acid (0.4-2.0) mmol/L Calcium Cancelled 8.8 Total Bilirubin 0.4 (0.2-1.0) mg/dL Direct Bilirubin 0.1 Cancelled (0.0-0.2) mg/dL AST 67 H (15-37) U/L ALT 49 (12-78) U/L Alkaline Phosphatase 94 (46-116) IU/L Total Protein 7.2 (6.4-8.2) g/dL Albumin 2.9 L (3.4-5.0) g/dL 07/02/21 07/02/21 07/03/21 Range/Units 12:07 16:56 07:35 WBC 3.7 L (4.0-10.2) K/uL RBC 4.88 (3.77-5.09) M/uL Hgb 13.6 (11.7-15.5) g/dL Hct 41.2 (34.0-46.0) % MCV 84.4 (84.0-98.0) fL MCH 27.9 L (28.2-33.3) pg MCHC 33.0 (31.7-36.0) g/dL RDW 13.8 (11.2-14.1) % Plt Count 180 (150-350) K/uL Neut % (Auto) 77.8 (45.0-80.0) % Lymph % (Auto) 16.3 (10.0-50.0) % [place] % (Auto) 5.6 (2.0-14.0) % Eos % (Auto) 0.3 (0.0-5.0) % Baso % (Auto) 0.0 (0.0-2.0) % Neut # (Auto) 2.91 (1.40-7.00) K/uL Lymph # (Auto) 0.61 (0.50-3.50) K/uL [place] # (Auto) 0.21 (0.00-1.00) K/uL Eos # (Auto) 0.01 (0.00-0.50) K/uL Baso # (Auto) 0.00 (0.00-0.20) K/uL Sodium Potassium Chloride Carbon Dioxide Anion Gap BUN Creatinine Est Cr Clr Drug Dosing Estimated GFR (MDRD) Glucose POC Glucose 298 H 358 H (70-99) mg/dL Lactic Acid (0.4-2.0) mmol/L Calcium Total Bilirubin (0.2-1.0) mg/dL Direct Bilirubin (0.0-0.2) mg/dL AST (15-37) U/L ALT (12-78) U/L Alkaline Phosphatase (46-116) IU/L Total Protein (6.4-8.2) g/dL Albumin (3.4-5.0) g/dL 07/03/21 07/03/21 07/03/21 Range/Units 07:35 07:35 07:40 WBC (4.0-10.2) K/uL RBC (3.77-5.09) M/uL Hgb (11.7-15.5) g/dL Hct (34.0-46.0) % MCV (84.0-98.0) fL MCH (28.2-33.3) pg MCHC (31.7-36.0) g/dL RDW (11.2-14.1) % Plt Count (150-350) K/uL Neut % (Auto) (45.0-80.0) % Lymph % (Auto) (10.0-50.0) % [place] % (Auto) (2.0-14.0) % Eos % (Auto) (0.0-5.0) % Baso % (Auto) (0.0-2.0) % Neut # (Auto) (1.40-7.00) K/uL Lymph # (Auto) (0.50-3.50) K/uL [place] # (Auto) (0.00-1.00) K/uL Eos # (Auto) (0.00-0.50) K/uL Baso # (Auto) (0.00-0.20) K/uL Sodium 137 Potassium 4.7 Chloride 100 Carbon Dioxide 30.5 Anion Gap 6.5 L BUN 16 Creatinine 0.73 Est Cr Clr Drug Dosing 64.40 Estimated GFR (MDRD) > 60 Glucose 319 H POC Glucose 296 H (70-99) mg/dL Lactic Acid 1.7 (0.4-2.0) mmol/L Calcium 9.2 Total Bilirubin 0.4 (0.2-1.0) mg/dL Direct Bilirubin 0.1 (0.0-0.2) mg/dL AST 55 H (15-37) U/L ALT 45 (12-78) U/L Alkaline Phosphatase 95 (46-116) IU/L Total Protein 7.1 (6.4-8.2) g/dL Albumin 2.7 L (3.4-5.0) g/dL Result Diagrams: 07/03/21 07:35 07/03/21 07:35 Sepsis Event Note - Evaluation Sepsis Screening Result: No Definite Risk - Focused Exam Vital Signs: Vital Signs Temp Pulse Resp BP BP Pulse Ox Pulse Ox 07/03/21 08:30 127/66 07/03/21 08:05 74 L 07/03/21 08:00 36.4 C 78 28 H 127/66 89 L - Problem List & Annotations (1) COVID-19 SNOMED Code(s): 124913024 Code(s): U07.1 - COVID-19 Status: Acute Current Visit: Yes (2) Depression SNOMED Code(s): 21391090 Code(s): F32.9 - MAJOR DEPRESSIVE DISORDER, SINGLE EPISODE, UNSPECIFIED Status: Acute Current Visit: Yes (3) Diabetes mellitus without complication, without long-term current use of insulin SNOMED Code(s): 949106446 Code(s): E11.9 - TYPE 2 DIABETES MELLITUS WITHOUT COMPLICATIONS Status: Acute Current Visit: Yes (4) Essential (primary) hypertension SNOMED Code(s): 57834899 Code(s): I10 - ESSENTIAL (PRIMARY) HYPERTENSION Status: Acute Current Visit: Yes (5) Hyperlipidemia SNOMED Code(s): 38060852 Code(s): E78.5 - HYPERLIPIDEMIA, UNSPECIFIED Status: Acute Current Visit: Yes - Problem List Review Problem List Initiated/Reviewed/Updated: Yes - My Orders Last 24 Hours: My Active Orders 07/02/21 09:33 RT Post Treatment Assessment [RC] Click to Edit RT Pre-Treatment Assessment [RC] Click to Edit 07/02/21 09:34 RT Aerosol Therapy [RC] 08,12,16,20 07/02/21 09:49 Albuterol [Proventil HFA] See Dose Instructions INH Q4H PRN 07/02/21 09:51 RT Post Treatment Assessment [RC] Click to Edit RT Pre-Treatment Assessment [RC] Click to Edit 07/02/21 10:00 Enoxaparin [Lovenox] 40 mg SUBCUT Q12H Remdesivir 100 mg Sodium Chloride 0.9% [Normal Saline] 100 ml IV Q24H 07/02/21 11:58 Sodium Chloride 0.9% [Saline Flush] 10 ml FLUSH ASDIRECTED PRN 07/02/21 12:00 Albuterol/Ipratropium [Combivent Respimat] 0 gm INH QID dexAMETHasone 6 mg PO DAILY 07/02/21 16:36 Incentive Spirometry [RT Incentive Spirometry] [RC] ASDIRECTED 07/02/21 18:00 Benzonatate [Tessalon Perles] 100 mg PO TID 07/03/21 07:35 D-DIMER QUANTITATIVE [COAG] Routine 07/03/21 08:45 CXR [Chest 1V Frontal] [CR] Routine 07/04/21 05:11 BILIRUBIN DIRECT [CHEM] DAILY CMP [COMPREHENSIVE METABOLIC PN,CMP] [CHEM] DAILY 07/05/21 05:11 BILIRUBIN DIRECT [CHEM] DAILY CMP [COMPREHENSIVE METABOLIC PN,CMP] [CHEM] DAILY 07/06/21 05:11 BILIRUBIN DIRECT [CHEM] DAILY CMP [COMPREHENSIVE METABOLIC PN,CMP] [CHEM] DAILY - Assessment Assessment:: Overall breathing is about the same but decreased O2 sats today. - Plan Plan:: Case discussed with Dr. Jay hospitalist at [facility]. Continue current medications. Recheck D-dimer this morning. If elevated consider CT scan to rule out PE, although CT scanner is currently down when he center somewhere else to do this. I will try morphine nebulization, 2 mg in 3 cc normal saline. Continue high flow oxygen as needed. We will start long-acting insulin today.
[2021-07-03] MEDS ORDERED: Morphine 2 MG/ML SYRINGE ONE (09:35)
[2021-07-03] MEDS ORDERED: Sodium Chloride 0.9% Inhalation Soln 3 ML Neb INH ONE (09:35)
[2021-07-03] MEDS ORDERED: 50% Dextrose in Water 50 ML Syringe IVPUSH PRN (09:40)
[2021-07-03] MEDS: Albuterol/Ipratropium 3.0-0.5 MG/3 ML Neb Soln NEB PRN ×3 (10:05→21:03)
[2021-07-03] MEDS: REMDESIVIR 100 MG in Sodium Chloride 0.9% 100 ML IV SCH (10:06)
[2021-07-03] MEDS: Enoxaparin 40 MG/0.4 ML Syringe SUBCUT SCH ×2 (10:06→21:02)
[2021-07-03] MEDS: Insulin Glarg,Human.Rec.Analog 100 Unit/ML SUBCUT SCH (10:09)
[2021-07-03] MEDS: Morphine 2 MG/ML SYRINGE PRN (21:02)
[2021-07-03] MEDS: Sodium Chloride 0.9% Inhalation Soln 3 ML Neb INH PRN (21:03)
[2021-07-03] MEDS: Nystatin Crm 30 GM Tube TOP PRN (22:04)
[2021-07-03] MEDS: guaiFENesin 600 MG Tab.ER PO SCH (22:04)
[2021-07-04] MEDS: Albuterol/Ipratropium 3.0-0.5 MG/3 ML Neb Soln NEB PRN ×3 (05:57→21:13)
[2021-07-04] MEDS: Sodium Chloride 0.9% Inhalation Soln 3 ML Neb INH PRN (06:10)
[2021-07-04] MEDS: Morphine 2 MG/ML SYRINGE PRN (06:10)
[2021-07-04] MEDS: metFORMIN 500 MG Tab PO SCH ×2 (07:48→17:18)
[2021-07-04] MEDS: Insulin Regular, Human 100 Units/ML 3 ML Vial SUBCUT SCH ×3 (07:49→17:18)
[2021-07-04] MEDS: Lisinopril 10 MG Tab PO SCH (07:51)
[2021-07-04] MEDS: glipiZIDE 5 MG Tab PO SCH ×2 (07:55→17:17)
[2021-07-04] MEDS: guaiFENesin 600 MG Tab.ER PO SCH ×2 (07:55→21:12)
[2021-07-04] MEDS: Dexamethasone 2 MG Tab PO SCH (08:04)
[2021-07-04] MEDS: Albuterol/Ipratropium 4 GM Inhalation Spray INH SCH ×5 (08:04→21:16)
[2021-07-04] MEDS: Levothyroxine 112 MCG Tab PO SCH (08:04)
[2021-07-04] MEDS: Benzonatate 100 MG Cap PO SCH ×3 (08:04→17:17)
[2021-07-04 08:05] LABS: CHLORIDE,CL 99 mmol/L (98-107); SODIUM,NA 134 mmol/L (136-145)
[2021-07-04] MEDS: Insulin Glarg,Human.Rec.Analog 100 Unit/ML SUBCUT SCH (08:07)
--- NOTE | 2021-07-04 08:18 | PCM.PN ---
- General Info Date of Service: 07/04/21 Admission Dx/Problem (Free Text): covid-19 Subjective Update: Patient feels overall okay. Better than at admission. About the same as yesterday. Still dropping O2 sats into the 60s at time, usually in the low 80s on supplemental oxygen. She was into the mid 90s for a while yesterday. Seems to do well with the morphine nebulizations. Still with productive cough. No fever or chills. No nausea, vomiting or diarrhea. No chest pain or tightness. - Patient Data Vitals - Most Recent: Last Vital Signs Temp 36.2 C 07/04/21 06:08 Pulse 73 07/04/21 06:08 Resp 22 H 07/04/21 06:08 BP 105/63 07/04/21 07:51 Pulse Ox 70 L 07/04/21 06:08 Weight - Most Recent: 113.398 kg I&O - Last 24 Hours: Intake & Output 07/03/21 07/04/21 07/04/21 22:59 06:59 14:59 Intake Total 760 Balance 760 Lab Results Last 24 Hours: Laboratory Results - last 24 hr 07/03/21 07/03/21 07/03/21 Range/Units 07:35 07:35 11:30 D-Dimer, Quantitative 361 (0-400) ng/mL Sodium (136-145) mmol/L Potassium (3.5-5.1) mmol/L Chloride (98-107) mmol/L Carbon Dioxide (21.0-32.0) mmol/L Anion Gap (7-15) meq/L BUN (7-18) mg/dL Creatinine (0.51-1.17) mg/dL Est Cr Clr Drug Dosing mL/min Estimated GFR (MDRD) mL/min Glucose (70-99) mg/dL POC Glucose 276 H (70-99) mg/dL Lactic Acid 1.7 (0.4-2.0) mmol/L Calcium (8.5-10.1) mg/dL Total Bilirubin (0.2-1.0) mg/dL Direct Bilirubin (0.0-0.2) mg/dL AST (15-37) U/L ALT (12-78) U/L Alkaline Phosphatase (46-116) IU/L Total Protein (6.4-8.2) g/dL Albumin (3.4-5.0) g/dL 07/03/21 07/04/21 Range/Units 17:11 07:35 D-Dimer, Quantitative (0-400) ng/mL Sodium 134 L (136-145) mmol/L Potassium 4.4 (3.5-5.1) mmol/L Chloride 99 (98-107) mmol/L Carbon Dioxide 29.4 (21.0-32.0) mmol/L Anion Gap 10.0 (7-15) meq/L BUN 14 (7-18) mg/dL Creatinine 0.66 (0.51-1.17) mg/dL Est Cr Clr Drug Dosing 71.23 mL/min Estimated GFR (MDRD) > 60 mL/min Glucose 342 H (70-99) mg/dL POC Glucose 458 H* (70-99) mg/dL Lactic Acid (0.4-2.0) mmol/L Calcium 9.0 (8.5-10.1) mg/dL Total Bilirubin 0.4 (0.2-1.0) mg/dL Direct Bilirubin 0.2 (0.0-0.2) mg/dL AST 49 H (15-37) U/L ALT 43 (12-78) U/L Alkaline Phosphatase 93 (46-116) IU/L Total Protein 6.7 (6.4-8.2) g/dL Albumin 2.6 L (3.4-5.0) g/dL Med Orders - Current: Current Medications Acetaminophen (Acetaminophen 325 Mg Tab) 650 mg PO Q4H PRN PRN Reason: analgesia/fever Last Admin: 07/03/21 21:01 Dose: 650 mg Documented by: Albuterol (Albuterol 6.7 Gm Inhaler) 0 gm INH Q4H PRN PRN Reason: Shortness of Breath Last Admin: 07/03/21 17:17 Dose: 2 inhaler Documented by: Albuterol/Ipratropium (Albuterol/Ipratropium 4 Gm Inhalation [place]) 0 gm INH QID [facility] Last Admin: 07/04/21 08:04 Dose: 2 inhalation Documented by: Albuterol/Ipratropium (Albuterol/Ipratropium 3.0-0.5 Mg/3 Ml Neb Soln) 3 ml NEB Q4HR PRN PRN Reason: Shortness of Breath Last Admin: 07/04/21 05:57 Dose: 3 ml Documented by: Benzonatate (Benzonatate 100 Mg Cap) 100 mg PO TID [facility] Last Admin: 07/04/21 08:04 Dose: 100 mg Documented by: Calcium Carbonate/Glycine (Calcium Carbonate 500 Mg Tab.Chew) 500 mg PO Q4H PRN PRN Reason: Dyspepsia Dexamethasone (Dexamethasone 2 Mg Tab) 6 mg PO DAILY [facility] Last Admin: 07/04/21 08:04 Dose: 6 mg Documented by: Dextrose/Water (50% Dextrose In Water 50 Ml Syringe) 50 ml IVPUSH ASDIRECTED PRN PRN Reason: Hypoglycemia Dextrose/Water (50% Dextrose In Water 50 Ml Syringe) 50 ml IVPUSH ASDIRECTED PRN PRN Reason: Hypoglycemia Enoxaparin Sodium (Enoxaparin 40 Mg/0.4 Ml Syringe) 40 mg SUBCUT Q12H [facility] Last Admin: 07/03/21 21:02 Dose: 40 mg Documented by: Glipizide (Glipizide 5 Mg Tab) 5 mg PO BID [facility] Last Admin: 07/04/21 07:55 Dose: 5 mg Documented by: Glucagon (Glucagon,Human Recombinant 1 Mg Vial) 1 mg IM ASDIRECTED PRN PRN Reason: Hypoglycemia Guaifenesin (Guaifenesin 600 Mg Tab.Er) 1,200 mg PO BID@0800,2000 [facility] Last Admin: 07/04/21 07:55 Dose: 1,200 mg Documented by: Remdesivir 100 mg/ Sodium (Chloride) 100 mls @ 100 mls/hr IV Q24H [facility] Last Admin: 07/03/21 10:06 Dose: 100 mls/hr Documented by: Insulin Glargine (Insulin Glarg,Human.Rec.Analog 100 Unit/Ml) 10 unit SUBCUT DAILY [facility] Last Admin: 07/04/21 08:07 Dose: 10 unit Documented by: Insulin Human Regular (Insulin Regular, Human 100 Units/Ml 3 Ml Vial) 0 unit SUBCUT TIDAC [facility]; Protocol Last Admin: 07/04/21 07:49 Dose: 8 units Documented by: Levothyroxine Sodium (Levothyroxine 112 Mcg Tab) 112 mcg PO ACBREAKFAST [facility] Last Admin: 07/04/21 08:04 Dose: 112 mcg Documented by: Lisinopril (Lisinopril 10 Mg Tab) 10 mg PO DAILY [facility] Last Admin: 07/04/21 07:51 Dose: 10 mg Documented by: Magnesium Hydroxide (Magnesium Hydroxide 400 Mg/5 Ml Susp 30 Ml Cup) 30 ml PO BID PRN PRN Reason: Constipation Metformin HCl (Metformin 500 Mg Tab) 1,000 mg PO BIDMEALS [facility] Last Admin: 07/04/21 07:48 Dose: 1,000 mg Documented by: Morphine Sulfate (Morphine 2 Mg/Ml Syringe) 2 mg .XX Q4H PRN PRN Reason: Hypoxia, Shortness of Breath Last Admin: 07/04/21 06:10 Dose: 2 mg Documented by: Nystatin (Nystatin Crm 30 Gm Tube) 0 gm TOP QID PRN PRN Reason: Itching Last Admin: 07/03/21 22:04 Dose: 1 applic Documented by: Sodium Chloride (Sodium Chloride 0.9% 10 Ml Syringe) 10 ml FLUSH ASDIRECTED PRN PRN Reason: to keep open Last Admin: 07/03/21 10:08 Dose: 10 ml Documented by: Sodium Chloride (Sodium Chloride 0.9% Inhalation Soln 3 Ml Neb) 3 ml INH Q4H PRN PRN Reason: Hypoxia, Shortness of breath Last Admin: 07/04/21 06:10 Dose: 3 ml Documented by: Discontinued Medications Dexamethasone (Dexamethasone 2 Mg Tab) 2 mg PO BID [facility] Last Admin: 07/02/21 11:51 Dose: Not Given Documented by: Remdesivir 200 mg/ Sodium (Chloride) 250 mls @ 250 mls/hr IV ONETIME ONE Stop: 07/01/21 20:54 Last Admin: 07/01/21 20:49 Dose: 250 mls/hr Documented by: Morphine Sulfate (Morphine 2 Mg/Ml Syringe) 2 mg .XX ONETIME ONE Stop: 07/03/21 09:36 Last Admin: 07/03/21 10:04 Dose: 2 mg Documented by: Sodium Chloride (Sodium Chloride 0.9% Inhalation Soln 3 Ml Neb) 3 ml INH ONETIME ONE Stop: 07/03/21 09:36 Last Admin: 07/03/21 10:03 Dose: 3 ml Documented by: - Exam Quality Assessment: Supplemental Oxygen General: Alert, Oriented Lungs: Decreased Breath Sounds, Other (Diminished breath sounds but overall clear.). No: Rhonchi, Wheezing Cardiovascular: Regular Rate, Regular Rhythm. No: Murmurs GI/Abdominal Exam: Normal Bowel Sounds, Soft, Non-Tender - Patient Data Lab Results Last 24 hrs: Laboratory Results - last 24 hr 07/03/21 07/03/21 07/03/21 Range/Units 07:35 07:35 11:30 D-Dimer, Quantitative 361 (0-400) ng/mL Sodium (136-145) mmol/L Potassium (3.5-5.1) mmol/L Chloride (98-107) mmol/L Carbon Dioxide (21.0-32.0) mmol/L Anion Gap (7-15) meq/L BUN (7-18) mg/dL Creatinine (0.51-1.17) mg/dL Est Cr Clr Drug Dosing mL/min Estimated GFR (MDRD) mL/min Glucose (70-99) mg/dL POC Glucose 276 H (70-99) mg/dL Lactic Acid 1.7 (0.4-2.0) mmol/L Calcium (8.5-10.1) mg/dL Total Bilirubin (0.2-1.0) mg/dL Direct Bilirubin (0.0-0.2) mg/dL AST (15-37) U/L ALT (12-78) U/L Alkaline Phosphatase (46-116) IU/L Total Protein (6.4-8.2) g/dL Albumin (3.4-5.0) g/dL 07/03/21 07/04/21 Range/Units 17:11 07:35 D-Dimer, Quantitative (0-400) ng/mL Sodium 134 L (136-145) mmol/L Potassium 4.4 (3.5-5.1) mmol/L Chloride 99 (98-107) mmol/L Carbon Dioxide 29.4 (21.0-32.0) mmol/L Anion Gap 10.0 (7-15) meq/L BUN 14 (7-18) mg/dL Creatinine 0.66 (0.51-1.17) mg/dL Est Cr Clr Drug Dosing 71.23 mL/min Estimated GFR (MDRD) > 60 mL/min Glucose 342 H (70-99) mg/dL POC Glucose 458 H* (70-99) mg/dL Lactic Acid (0.4-2.0) mmol/L Calcium 9.0 (8.5-10.1) mg/dL Total Bilirubin 0.4 (0.2-1.0) mg/dL Direct Bilirubin 0.2 (0.0-0.2) mg/dL AST 49 H (15-37) U/L ALT 43 (12-78) U/L Alkaline Phosphatase 93 (46-116) IU/L Total Protein 6.7 (6.4-8.2) g/dL Albumin 2.6 L (3.4-5.0) g/dL Result Diagrams: 07/04/21 07:30 07/04/21 07:35 Sepsis Event Note - Evaluation Sepsis Screening Result: No Definite Risk - Focused Exam Vital Signs: Vital Signs Temp Pulse Resp BP BP Pulse Ox 07/04/21 07:51 105/63 07/04/21 06:08 36.2 C 73 22 H 132/69 70 L 07/04/21 04:00 20 92 L 07/04/21 00:00 94 L 07/03/21 20:48 36.3 C 76 26 H 126/74 96 - Problem List & Annotations (1) COVID-19 SNOMED Code(s): 688160832 Code(s): U07.1 - COVID-19 Status: Acute Current Visit: Yes (2) Depression SNOMED Code(s): 60025674 Code(s): F32.9 - MAJOR DEPRESSIVE DISORDER, SINGLE EPISODE, UNSPECIFIED Status: Acute Current Visit: Yes (3) Diabetes mellitus without complication, without long-term current use of insulin SNOMED Code(s): 519274482 Code(s): E11.9 - TYPE 2 DIABETES MELLITUS WITHOUT COMPLICATIONS Status: Acute Current Visit: Yes (4) Essential (primary) hypertension SNOMED Code(s): 99168335 Code(s): I10 - ESSENTIAL (PRIMARY) HYPERTENSION Status: Acute Current Visit: Yes (5) Hyperlipidemia SNOMED Code(s): 16981825 Code(s): E78.5 - HYPERLIPIDEMIA, UNSPECIFIED Status: Acute Current Visit: Yes - Problem List Review Problem List Initiated/Reviewed/Updated: Yes - My Orders Last 24 Hours: My Active Orders 07/03/21 08:45 CXR [Chest 1V Frontal] [CR] Routine 07/03/21 09:36 RT Aerosol Therapy [RC] .PRN Albuterol/Ipratropium [DuoNeb 3.0-0.5 MG/3 ML] 3 ml NEB Q4HR PRN 07/03/21 09:40 Dextrose 50% in Water 50 ml IVPUSH ASDIRECTED PRN 07/03/21 09:45 Insulin Glarg,Human.Rec.Analog [LantUS] 10 unit SUBCUT DAILY 07/03/21 18:58 Morphine 2 mg .XX Q4H PRN 07/03/21 19:01 Sodium Chloride 0.9% 3 ml INH Q4H PRN 07/03/21 21:16 Nystatin [Nystatin Crm] See Dose Instructions TOP QID PRN 07/03/21 21:24 guaiFENesin [Mucinex] 1,200 mg PO BID@0800,199907/04/21 08:01 CBC WITH AUTO DIFF [HEME] Routine 07/05/21 05:11 BILIRUBIN DIRECT [CHEM] DAILY CMP [COMPREHENSIVE METABOLIC PN,CMP] [CHEM] DAILY 07/06/21 05:11 BILIRUBIN DIRECT [CHEM] DAILY CMP [COMPREHENSIVE METABOLIC PN,CMP] [CHEM] DAILY - Assessment Assessment:: Overall breathing is about the same but decreased O2 sats today. - Plan Plan:: [id number] Continue current cares with morphine nebulization as needed. Continue Lantus with short acting insulin as needed. [id number] Case discussed with Dr. Jay hospitalist at [facility] in [place]. Continue current medications. Recheck D-dimer this morning. If elevated consider CT scan to rule out PE, although CT scanner is currently down when he center somewhere else to do this. I will try morphine nebulization, 2 mg in 3 cc normal saline. Continue high flow oxygen as needed. We will start long-acting insulin today.
[2021-07-04] MEDS ORDERED: Insulin Glarg,Human.Rec.Analog 100 Unit/ML SUBCUT ONE (08:45)
[2021-07-04] MEDS: Enoxaparin 40 MG/0.4 ML Syringe SUBCUT SCH ×2 (10:19→21:11)
[2021-07-04] MEDS: Sodium Chloride 0.9% 10 ML Syringe FLUSH PRN ×2 (10:21→11:28)
[2021-07-04] MEDS: REMDESIVIR 100 MG in Sodium Chloride 0.9% 100 ML IV SCH (10:21)
[2021-07-04] MEDS: Acetaminophen 325 MG Tab PO PRN ×2 (17:24→21:12)
[2021-07-05] MEDS: Dexamethasone 2 MG Tab PO SCH (07:41)
[2021-07-05] MEDS: metFORMIN 500 MG Tab PO SCH ×2 (07:41→17:24)
[2021-07-05 07:42] LABS: ANION GAP 7.1 meq/L (7-15); CHLORIDE,CL 101 mmol/L (98-107); SODIUM,NA 136 mmol/L (136-145)
[2021-07-05] MEDS: guaiFENesin 600 MG Tab.ER PO SCH ×2 (07:42→21:05)
[2021-07-05] MEDS: glipiZIDE 5 MG Tab PO SCH ×2 (07:42→17:25)
[2021-07-05] MEDS: Benzonatate 100 MG Cap PO SCH ×3 (07:43→17:25)
[2021-07-05] MEDS: Lisinopril 10 MG Tab PO SCH (07:43)
[2021-07-05] MEDS: Levothyroxine 112 MCG Tab PO SCH (07:43)
[2021-07-05] MEDS: Albuterol/Ipratropium 4 GM Inhalation Spray INH SCH ×3 (07:45→17:27)
[2021-07-05] MEDS: Insulin Regular, Human 100 Units/ML 3 ML Vial SUBCUT SCH ×3 (07:47→17:28)
[2021-07-05] MEDS: Acetaminophen 325 MG Tab PO PRN ×2 (07:50→21:05)
[2021-07-05] MEDS ORDERED: Insulin Glarg,Human.Rec.Analog 100 Unit/ML SUBCUT SCH (08:00)
[2021-07-05] MEDS: Enoxaparin 40 MG/0.4 ML Syringe SUBCUT SCH ×2 (09:56→21:07)
[2021-07-05] MEDS ORDERED: REMDESIVIR 100 MG in Sodium Chloride 0.9% 100 ML IV SCH (12:00)
--- NOTE | 2021-07-05 14:17 | PCM.PN ---
- General Info Date of Service: 07/05/21 Admission Dx/Problem (Free Text): Covid-19 with associated hypoxemia Subjective Update: Patient denies feeling any worse compared to time of admission. Does not feel improved however. No new symptoms reported. Functional Status: Reports: Pain Controlled, Tolerating Diet, Ambulating (in room), Urinating, Incentive Spirometry. Denies: New Symptoms - Review of Systems General: Reports: Weakness, Fatigue, Malaise, Appetite (poor). Denies: Fever, Chills, Night Sweats HEENT: Denies: Dysphasia, Ear Pain, Eye Pain, Headaches, Sinus Congestion, Sore Throat, Rhinitis, Visual Changes Pulmonary: Reports: Shortness of Breath, Cough, Sputum. Denies: Pleuritic Chest Pain, Hemoptysis, Wheezing Cardiovascular: Reports: Dyspnea on Exertion. Denies: Chest Pain, Palpitations, Edema, Lightheadedness Gastrointestinal: Reports: No Symptoms Genitourinary: Reports: No Symptoms Musculoskeletal: Reports: Other (No acute changes from baseline) Skin: Reports: No Symptoms Neurological: Reports: No Symptoms Psychiatric: Reports: No Symptoms - Patient Data Vitals - Most Recent: Last Vital Signs Temp 36.7 C 07/05/21 11:45 Pulse 91 07/05/21 11:45 Resp 32 H 07/05/21 11:45 BP 145/73 H 07/05/21 11:45 Pulse Ox 80 L 07/05/21 11:45 Weight - Most Recent: 113.398 kg I&O - Last 24 Hours: Intake & Output 07/04/21 07/05/21 07/05/21 22:59 06:59 14:59 Intake Total 520 Balance 520 Lab Results Last 24 Hours: Laboratory Results - last 24 hr 07/01/21 07/04/21 07/05/21 Range/Units 20:30 17:14 07:15 Sodium 136 (136-145) mmol/L Potassium 4.2 (3.5-5.1) mmol/L Chloride 101 (98-107) mmol/L Carbon Dioxide 27.9 (21.0-32.0) mmol/L Anion Gap 7.1 (7-15) meq/L BUN 10 (7-18) mg/dL Creatinine 0.75 (0.51-1.17) mg/dL Est Cr Clr Drug Dosing 62.69 mL/min Estimated GFR (MDRD) > 60 mL/min Glucose 270 H (70-99) mg/dL POC Glucose 387 H (70-99) mg/dL Calcium 9.4 (8.5-10.1) mg/dL Total Bilirubin 0.5 (0.2-1.0) mg/dL Direct Bilirubin 0.2 (0.0-0.2) mg/dL AST 39 H (15-37) U/L ALT 40 (12-78) U/L Alkaline Phosphatase 98 (46-116) IU/L Total Protein 7.1 (6.4-8.2) g/dL Albumin 2.8 L (3.4-5.0) g/dL Procalcitonin 0.24 H ng/mL 07/05/21 07/05/21 Range/Units 07:30 11:41 Sodium (136-145) mmol/L Potassium (3.5-5.1) mmol/L Chloride (98-107) mmol/L Carbon Dioxide (21.0-32.0) mmol/L Anion Gap (7-15) meq/L BUN (7-18) mg/dL Creatinine (0.51-1.17) mg/dL Est Cr Clr Drug Dosing mL/min Estimated GFR (MDRD) mL/min Glucose (70-99) mg/dL POC Glucose 249 H 315 H (70-99) mg/dL Calcium (8.5-10.1) mg/dL Total Bilirubin (0.2-1.0) mg/dL Direct Bilirubin (0.0-0.2) mg/dL AST (15-37) U/L ALT (12-78) U/L Alkaline Phosphatase (46-116) IU/L Total Protein (6.4-8.2) g/dL Albumin (3.4-5.0) g/dL Procalcitonin ng/mL Med Orders - Current: Current Medications Acetaminophen (Acetaminophen 325 Mg Tab) 650 mg PO Q4H PRN PRN Reason: analgesia/fever Last Admin: 07/05/21 07:50 Dose: 650 mg Documented by: Albuterol (Albuterol 6.7 Gm Inhaler) 0 gm INH Q4H PRN PRN Reason: Shortness of Breath Last Admin: 07/03/21 17:17 Dose: 2 inhaler Documented by: Albuterol/Ipratropium (Albuterol/Ipratropium 3.0-0.5 Mg/3 Ml Neb Soln) 3 ml NEB Q4HR PRN PRN Reason: Shortness of Breath Last Admin: 07/04/21 21:13 Dose: 3 ml Documented by: Albuterol/Ipratropium (Albuterol/Ipratropium 4 Gm Inhalation Frederic) 0 gm INH QID@0800,1200,1800,2200 [facility] Last Admin: 07/05/21 11:51 Dose: 2 inhalation Documented by: Benzonatate (Benzonatate 100 Mg Cap) 100 mg PO TID [facility] Last Admin: 07/05/21 11:49 Dose: 100 mg Documented by: Calcium Carbonate/Glycine (Calcium Carbonate 500 Mg Tab.Chew) 500 mg PO Q4H PRN PRN Reason: Dyspepsia Dexamethasone (Dexamethasone 2 Mg Tab) 6 mg PO DAILY [facility] Last Admin: 07/05/21 07:41 Dose: 6 mg Documented by: Dextrose/Water (50% Dextrose In Water 50 Ml Syringe) 50 ml IVPUSH ASDIRECTED PRN PRN Reason: Hypoglycemia Enoxaparin Sodium (Enoxaparin 40 Mg/0.4 Ml Syringe) 40 mg SUBCUT Q12H [facility] Last Admin: 07/05/21 09:56 Dose: 40 mg Documented by: Glipizide (Glipizide 5 Mg Tab) 5 mg PO BID [facility] Last Admin: 07/05/21 07:42 Dose: 5 mg Documented by: Glucagon (Glucagon,Human Recombinant 1 Mg Vial) 1 mg IM ASDIRECTED PRN PRN Reason: Hypoglycemia Guaifenesin (Guaifenesin 600 Mg Tab.Er) 1,200 mg PO BID@0800,2200 [facility] Last Admin: 07/05/21 07:42 Dose: 1,200 mg Documented by: Insulin Glargine (Insulin Glarg,Human.Rec.Analog 100 Unit/Ml) 15 unit SUBCUT DAILY [facility] Last Admin: 07/05/21 07:51 Dose: 15 units Documented by: Insulin Human Regular (Insulin Regular, Human 100 Units/Ml 3 Ml Vial) 0 unit SUBCUT TIDAC [facility]; Protocol Last Admin: 07/05/21 11:49 Dose: 8 units Documented by: Levothyroxine Sodium (Levothyroxine 112 Mcg Tab) 112 mcg PO ACBREAKFAST [facility] Last Admin: 07/05/21 07:43 Dose: 112 mcg Documented by: Lisinopril (Lisinopril 10 Mg Tab) 10 mg PO DAILY [facility] Last Admin: 07/05/21 07:43 Dose: 10 mg Documented by: Magnesium Hydroxide (Magnesium Hydroxide 400 Mg/5 Ml Susp 30 Ml Cup) 30 ml PO B ID PRN PRN Reason: Constipation Metformin HCl (Metformin 500 Mg Tab) 1,000 mg PO BIDMEALS [facility] Last Admin: 07/05/21 07:41 Dose: 1,000 mg Documented by: Morphine Sulfate (Morphine 2 Mg/Ml Syringe) 2 mg .XX Q4H PRN PRN Reason: Hypoxia, Shortness of Breath Last Admin: 07/04/21 06:10 Dose: 2 mg Documented by: Nystatin (Nystatin Crm 30 Gm Tube) 0 gm TOP QID PRN PRN Reason: Itching Last Admin: 07/03/21 22:04 Dose: 1 applic Documented by: Sodium Chloride (Sodium Chloride 0.9% 10 Ml Syringe) 10 ml FLUSH ASDIRECTED PRN PRN Reason: to keep open Last Admin: 07/04/21 11:28 Dose: 10 ml Documented by: Sodium Chloride (Sodium Chloride 0.9% Inhalation Soln 3 Ml Neb) 3 ml INH Q4H PRN PRN Reason: Hypoxia, Shortness of breath Last Admin: 07/04/21 06:10 Dose: 3 ml Documented by: Discontinued Medications Albuterol/Ipratropium (Albuterol/Ipratropium 4 Gm Inhalation Frederic) 0 gm INH QID [facility] Last Admin: 07/04/21 17:06 Dose: Not Given Documented by: Dexamethasone (Dexamethasone 2 Mg Tab) 2 mg PO BID [facility] Last Admin: 07/02/21 11:51 Dose: Not Given Documented by: Dextrose/Water (50% Dextrose In Water 50 Ml Syringe) 50 ml IVPUSH ASDIRECTED PRN PRN Reason: Hypoglycemia Guaifenesin (Guaifenesin 600 Mg Tab.Er) 1,200 mg PO BID@0800,2000 [facility] Last Admin: 07/04/21 07:55 Dose: 1,200 mg Documented by: Remdesivir 200 mg/ Sodium (Chloride) 250 mls @ 250 mls/hr IV ONETIME ONE Stop: 07/01/21 20:54 Last Admin: 07/01/21 20:49 Dose: 250 mls/hr Documented by: Remdesivir 100 mg/ Sodium (Chloride) 100 mls @ 100 mls/hr IV Q24H [facility] Last Admin: 07/04/21 10:21 Dose: 100 mls/hr Documented by: Remdesivir 100 mg/ Sodium (Chloride) 100 mls @ 100 mls/hr IV Q24H [facility] Stop: 07/05/21 12:59 Last Admin: 07/05/21 11:52 Dose: 100 mls/hr Documented by: Insulin Glargine (Insulin Glarg,Human.Rec.Analog 100 Unit/Ml) 10 unit SUBCUT DAILY [facility] Last Admin: 07/04/21 08:07 Dose: 10 unit Documented by: Insulin Glargine (Insulin Glarg,Human.Rec.Analog 100 Unit/Ml) 5 unit SUBCUT ONETIME ONE Stop: 07/04/21 08:46 Last Admin: 07/04/21 10:18 Dose: 5 units Documented by: Morphine Sulfate (Morphine 2 Mg/Ml Syringe) 2 mg .XX ONETIME ONE Stop: 07/03/21 09:36 Last Admin: 07/03/21 10:04 Dose: 2 mg Documented by: Sodium Chloride (Sodium Chloride 0.9% Inhalation Soln 3 Ml Neb) 3 ml INH ONETIME ONE Stop: 07/03/21 09:36 Last Admin: 07/03/21 10:03 Dose: 3 ml Documented by: - Exam Quality Assessment: Supplemental Oxygen, DVT Prophylaxis General: Alert, Oriented, Cooperative, No Acute Distress HEENT: Pupils Equal, Pupils Reactive, EOMI, Mucous Membr. Moist/[place] Neck: Supple Lungs: Normal Respiratory Effort (elevated rate but no retractions noted), Rales (base on right). No: Crackles, Rhonchi, Rub, Stridor, Wheezing Cardiovascular: Regular Rate, Regular Rhythm GI/Abdominal Exam: Soft, Non-Tender, No Distention (Female) Exam: Deferred Back Exam: No: CVA Tenderness (L), CVA Tenderness (R), Muscle Spasm Extremities: Non-Tender, No Pedal Edema, Normal Capillary Refill Skin: Warm, Dry Neurological: No New Focal Deficit Psy/Mental Status: Alert, Normal Affect, Normal Mood - Patient Data Lab Results Last 24 hrs: Laboratory Results - last 24 hr 07/01/21 07/04/2107/05/21 Range/Units 20:30 17:14 07:15 Sodium 136 (136-145) mmol/L Potassium 4.2 (3.5-5.1) mmol/L Chloride 101 (98-107) mmol/L Carbon Dioxide 27.9 (21.0-32.0) mmol/L Anion Gap 7.1 (7-15) meq/L BUN 10 (7-18) mg/dL Creatinine 0.75 (0.51-1.17) mg/dL Est Cr Clr Drug Dosing 62.69 mL/min Estimated GFR (MDRD) > 60 mL/min Glucose 270 H (70-99) mg/dL POC Glucose 387 H (70-99) mg/dL Calcium 9.4 (8.5-10.1) mg/dL Total Bilirubin 0.5 (0.2-1.0) mg/dL Direct Bilirubin 0.2 (0.0-0.2) mg/dL AST 39 H (15-37) U/L ALT 40 (12-78) U/L Alkaline Phosphatase 98 (46-116) IU/L Total Protein 7.1 (6.4-8.2) g/dL Albumin 2.8 L (3.4-5.0) g/dL Procalcitonin 0.24 H ng/mL 07/05/21 07/05/21 Range/Units 07:30 11:41 Sodium (136-145) mmol/L Potassium (3.5-5.1) mmol/L Chloride (98-107) mmol/L Carbon Dioxide (21.0-32.0) mmol/L Anion Gap (7-15) meq/L BUN (7-18) mg/dL Creatinine (0.51-1.17) mg/dL Est Cr Clr Drug Dosing mL/min Estimated GFR (MDRD) mL/min Glucose (70-99) mg/dL POC Glucose 249 H 315 H (70-99) mg/dL Calcium (8.5-10.1) mg/dL Total Bilirubin (0.2-1.0) mg/dL Direct Bilirubin (0.0-0.2) mg/dL AST (15-37) U/L ALT (12-78) U/L Alkaline Phosphatase (46-116) IU/L Total Protein (6.4-8.2) g/dL Albumin (3.4-5.0) g/dL Procalcitonin ng/mL Result Diagrams: 07/04/21 07:30 07/05/21 07:15 Sepsis Event Note - Evaluation Sepsis Screening Result: No Definite Risk - Focused Exam Vital Signs: Vital Signs Temp Pulse Resp BP BP Pulse Ox 07/05/21 11:45 36.7 C 91 32 H 145/73 H 80 L 07/05/21 07:56 36.5 C 82 30 H 116/66 82 L 07/05/21 07:43 116/66 07/05/21 04:00 84 L - Problem List & Annotations (1) COVID-19 SNOMED Code(s): 089009822 Code(s): U07.1 - COVID-19 Status: Acute Priority: High Current Visit: Yes Annotation/Comment:: Acute Covid infection with associated hypoxemia. Received Remdesivir on 07/05 Normal DDimer. (2) Hypoxemia SNOMED Code(s): 946246377 Code(s): R09.02 - HYPOXEMIA Status: Acute Priority: High Current Visit: Yes Annotation/Comment:: Acute Covid infection with associated hypoxemia. Currently requiring 15L via NRM. Does not feel SOB. Consider initiating Bipap if any deterioration is noted. Patient at this time would like to stick with the non-rebreather mask. Negative DDimer. (3) Obesity SNOMED Code(s): 341734535, [id number] Code(s): E66.9 - OBESITY, UNSPECIFIED Status: Chronic Priority: Low Current Visit: Yes Qualifiers: Obesity type: unspecified obesity type (4) Depression SNOMED Code(s): 23573302 Code(s): F32.9 - MAJOR DEPRESSIVE DISORDER, SINGLE EPISODE, UNSPECIFIED Status: Chronic Priority: Low Current Visit: No Qualifiers: Depression Type: unspecified Qualified Code(s): F32.9 - Major depressive disorder, single episode, unspecified Annotation/Comment:: Stable by history (5) Diabetes mellitus without complication, without long-term current use of insulin SNOMED Code(s): 001535648 Code(s): E11.9 - TYPE 2 DIABETES MELLITUS WITHOUT COMPLICATIONS Status: Chronic Priority: Low Current Visit: Yes Qualifiers: Diabetes mellitus type: type 2 Qualified Code(s): E11.9 - Type 2 diabetes mellitus without complications Annotation/Comment:: Accuchecks initiated. Receiving insulin therapy. (6) Essential (primary) hypertension SNOMED Code(s): 63255641 Code(s): I10 - ESSENTIAL (PRIMARY) HYPERTENSION Status: Chronic Priority: Low Current Visit: Yes Annotation/Comment:: Has been stable. Observe trends. (7) Hyperlipidemia SNOMED Code(s): 73636393 Code(s): E78.5 - HYPERLIPIDEMIA, UNSPECIFIED Status: Chronic Priority: Low Current Visit: No Qualifiers: Hyperlipidemia type: unspecified Qualified Code(s): E78.5 - Hyperlipidemia, unspecified Annotation/Comment:: Followed by PCP (8) Hypothyroid SNOMED Code(s): 93591654 Code(s): E03.9 - HYPOTHYROIDISM, UNSPECIFIED Status: Chronic Priority: Low Current Visit: No Qualifiers: Hypothyroidism type: unspecified Qualified Code(s): E03.9 - Hypothyroidism, unspecified Annotation/Comment:: Receiving replacment therapy - Problem List Review Problem List Initiated/Reviewed/Updated: Yes - Assessment Assessment:: As above - Plan Plan:: [id number] Continue current cares with morphine nebulization as needed. Continue Lantus with short acting insulin as needed. [id number] Case discussed with Dr. Jay hospitalist at [facility] in [place]. Continue current medications. DDimer normal. I will try morphine nebulization, 2 mg in 3 cc normal saline. Continue high flow oxygen as needed. We will start long-acting insulin today. [id number] Patient stable and overall unchanged. Mild increased respiratory rate today 30- 32. O2 sats 80-82% on 15L. Desats to 60/70s when coughing. Continue Dexamethasone and Nebs. Consider Bipap if deterioration noted. Patient does not wish to be intubated if situation worsens. Uncertain as to how long she will require inpatient care given the significant hypoxemia from Covid. Anticipate at least an another 4-5 days inpatient care.
[2021-07-05] MEDS ORDERED: Insulin Regular, Human 100 Units/ML 3 ML Vial SUBCUT ONE ×2 (17:29→21:16)
[2021-07-05] MEDS ORDERED: Albuterol 6.7 GM Inhaler INH PRN (19:30)
[2021-07-05] MEDS ORDERED: 50% Dextrose in Water 50 ML Syringe IVPUSH PRN (21:03)
[2021-07-05] MEDS ORDERED: Glucagon,Human Recombinant 1 MG Vial IM PRN (21:03)
[2021-07-05] MEDS: Albuterol/Ipratropium 3.0-0.5 MG/3 ML Neb Soln NEB SCH (21:07)
[2021-07-05] MEDS: Sodium Chloride 0.9% 10 ML Syringe FLUSH PRN (21:19)
[2021-07-06] MEDS: Albuterol/Ipratropium 3.0-0.5 MG/3 ML Neb Soln NEB SCH ×4 (00:03→11:20)
[2021-07-06] MEDS: Acetaminophen 325 MG Tab PO PRN ×2 (02:40→08:25)
[2021-07-06] MEDS ORDERED: Sodium Chloride 0.9% 10 ML Syringe FLUSH SCH (08:00)
[2021-07-06] MEDS ORDERED: Insulin Glarg,Human.Rec.Analog 100 Unit/ML SUBCUT SCH (08:00)
[2021-07-06] MEDS: guaiFENesin 600 MG Tab.ER PO SCH (08:01)
[2021-07-06 08:02] LABS: ANION GAP 7.7 meq/L (7-15); CHLORIDE,CL 100 mmol/L (98-107); SODIUM,NA 137 mmol/L (136-145)
[2021-07-06] MEDS: Benzonatate 100 MG Cap PO SCH ×2 (08:02→11:27)
[2021-07-06] MEDS: Dexamethasone 2 MG Tab PO SCH (08:02)
[2021-07-06] MEDS: Levothyroxine 112 MCG Tab PO SCH (08:02)
[2021-07-06] MEDS: Morphine 2 MG/ML SYRINGE PRN (08:03)
[2021-07-06] MEDS: Sodium Chloride 0.9% Inhalation Soln 3 ML Neb INH PRN (08:03)
[2021-07-06] MEDS: metFORMIN 500 MG Tab PO SCH (08:05)
[2021-07-06] MEDS: Insulin Regular, Human 100 Units/ML 3 ML Vial SUBCUT SCH ×2 (08:05→11:25)
[2021-07-06] MEDS: glipiZIDE 5 MG Tab PO SCH (08:05)
[2021-07-06] MEDS: Nystatin Crm 30 GM Tube TOP PRN (08:26)
[2021-07-06] MEDS: Lisinopril 10 MG Tab PO SCH (08:26)
[2021-07-06] MEDS ORDERED: Menthol/Methyl Salicylate 85 GM Tube TOP PRN (08:52)
--- NOTE | 2021-07-06 11:15 | PCM.DCSUM1 ---
Discharge Summary - Hospital Course Brief History: Patient admitted for treatment of significant hypoxemia related to acute Covid infection. Diagnosis: Stroke: No - Discharge Data Discharge Date: 07/06/21 Discharge Disposition: DC/Tfer to Acute Hospital 02 Condition: Serious - Referral to Home Health Primary Care Physician: Kelin Prieto PA-C - Discharge Diagnosis/Problem(s) (1) COVID-19 SNOMED Code(s): 205161747 ICD Code: U07.1 - COVID-19 Status: Acute Priority: High Problem Details: Acute Covid infection with associated hypoxemia. Received Remdesivir. Dexamethasone. Normal DDimer. (2) Hypoxemia SNOMED Code(s): 643705835 ICD Code: R09.02 - HYPOXEMIA Status: Acute Priority: High Problem Details: Acute Covid infection with associated hypoxemia. Has been requiring 15L via nonrebreather mask during entire course of inpatient stay. Does not feel SOB. Negative DDimer. O2 sats dip frequently into 70s with activity/coughing/mucus clearing. Was noted to be in mid 80s in between these episodes for much of stay. Noted over last 24 hours to be trending downward overall. Trialed on bipap last night and returned to mid 80s. Then noted to dwindle again, sometimes down in 60s. Patient requested to d/c bipap and it was noted she did just as well on NC O2 at 15L as she did on bipap and nonrebreather mask. Currently high 70s with brief periods in mid to high 80s. (3) Obesity SNOMED Code(s): 961511232, 417291950 ICD Code: E66.9 - OBESITY, UNSPECIFIED Status: Chronic Priority: Low Qualifiers: Obesity type: unspecified obesity type (4) Depression SNOMED Code(s): 11442039 ICD Code: F32.9 - MAJOR DEPRESSIVE DISORDER, SINGLE EPISODE, UNSPECIFIED Status: Chronic Priority: Low Problem Details: Stable by history Qualifiers: Depression Type: unspecified Qualified Code(s): F32.9 - Major depressive disorder, single episode, unspecified (5) Diabetes mellitus without complication, without long-term current use of insulin SNOMED Code(s): 356395337 ICD Code: E11.9 - TYPE 2 DIABETES MELLITUS WITHOUT COMPLICATIONS Status: Chronic Priority: Low Problem Details: Accuchecks initiated. Receiving insulin therapy for elevated blood sugars exacerbated by Dexamethasone treatment. Qualifiers: Diabetes mellitus type: type 2 Qualified Code(s): E11.9 - Type 2 diabetes mellitus without complications (6) Essential (primary) hypertension SNOMED Code(s): 12202436 ICD Code: I10 - ESSENTIAL (PRIMARY) HYPERTENSION Status: Chronic Priority: Low Problem Details: Has been stable. Observe trends. (7) Hyperlipidemia SNOMED Code(s): 74841646 ICD Code: E78.5 - HYPERLIPIDEMIA, UNSPECIFIED Status: Chronic Priority: Low Problem Details: Followed by PCP Qualifiers: Hyperlipidemia type: unspecified Qualified Code(s): E78.5 - Hyperlipidemia, unspecified (8) Hypothyroid SNOMED Code(s): 06206040 ICD Code: E03.9 - HYPOTHYROIDISM, UNSPECIFIED Status: Chronic Priority: Low Problem Details: Receiving replacment therapy Qualifiers: Hypothyroidism type: unspecified Qualified Code(s): E03.9 - Hypothyroidism, unspecified (9) Hypomagnesemia SNOMED Code(s): 030057434 ICD Code: E83.42 - HYPOMAGNESEMIA Status: Acute Priority: Medium Problem Details: Replacement Mag ordered for IV infusion. - Patient Summary/Data Hospital Course: As above. Patient noted to be trending downward regarding O2 sats, with 15L O2 via non-rebreather/NC/BiPap yielding similar results. Lactic acid had normalized during hospitalization but this morning is noted to be trending upwards again at 2.9 Patient initially desired to be CPR only without intubation. Several discussions were initiated with patient today concerning observed worsening oxygenation and potential poor outcome, along with pros/cons of intubation if needed. As of this morning she changed her mind as wishes to be full code and have transfer arranged to [place]. Call placed to [facility] in [place] and patient was accepted for transfer by . - Discharge Plan *PRESCRIPTION DRUG MONITORING PROGRAM REVIEWED*: Not Applicable *COPY OF PRESCRIPTION DRUG MONITORING REPORT IN PATIENT JACK: Not Applicable Home Medications: Home Meds Aspirin [Children's Aspirin] 81 mg PO DAILY 07/02/21 [History] Cholecalciferol (Vitamin D3) [Vitamin D3] 1,000 unit PO 07/02/21 [History] Cinnamon Bark [Cinnamon] 1 cap PO DAILY 07/02/21 [History] Cyanocobalamin (Vitamin B12) [Vitamin B12] 1,000 mcg PO DAILY 07/02/21 [History] Levothyroxine Sodium [Synthroid] 112 mcg PO DAILY 07/02/21 [History] Non-Formulary Medication [NF Drug] 1 insert VAG ASDIRECTED 07/02/21 [History] Sertraline [Zoloft] 50 mg PO 0800 07/02/21 [History] atorvaSTATin [Lipitor] 40 mg PO BEDTIME 07/02/21 [History] glipiZIDE [Glucotrol] 10 mg PO 07/02/21 [History] lisinopriL [Lisinopril] 10 mg PO DAILY 07/02/21 [History] metFORMIN HCl [Metformin HCl] 1,000 mg PO 07/02/21 [History] methylPREDNISolone [Medrol] 4 mg PO ASDIRECTED 07/02/21 [History] Referrals: Kelin Prieto PA-C [Primary Care Provider] - - Discharge Summary/Plan Comment DC Time >30 min.: Yes (waiting for EMS transfer to be arranged. ) Total # of Minutes for Discharge Time: 60 - Patient Data Vitals - Most Recent: Last Vital Signs Temp 36.7 C 07/06/21 08:00 Pulse 106 H 07/06/21 08:00 Resp 20 07/06/21 08:00 BP 127/68 07/06/21 08:26 Pulse Ox 78 L 07/06/21 08:00 Weight - Most Recent: 113.398 kg I&O - Last 24 hours: Intake & Output 07/05/21 07/06/21 07/06/21 22:59 06:59 14:59 Intake Total 460 450 Balance 460 450 Lab Results - Last 24 hrs: Laboratory Results - last 24 hr 07/01/21 07/05/21 07/05/21 Range/Units 20:30 11:41 17:19 WBC (4.0-10.2) K/uL RBC (3.77-5.09) M/uL Hgb (11.7-15.5) g/dL Hct (34.0-46.0) % MCV (84.0-98.0) fL MCH (28.2-33.3) pg MCHC (31.7-36.0) g/dL RDW (11.2-14.1) % Plt Count (150-350) K/uL Neut % (Auto) (45.0-80.0) % Lymph % (Auto) (10.0-50.0) % Gilliam % (Auto) (2.0-14.0) % Eos % (Auto) (0.0-5.0) % Baso % (Auto) (0.0-2.0) % Neut # (Auto) (1.40-7.00) K/uL Lymph # (Auto) (0.50-3.50) K/uL [place] # (Auto) (0.00-1.00) K/uL Eos # (Auto) (0.00-0.50) K/uL Baso # (Auto) (0.00-0.20) K/uL D-Dimer, Quantitative (0-400) ng/mL Sodium (136-145) mmol/L Potassium (3.5-5.1) mmol/L Chloride (98-107) mmol/L Carbon Dioxide (21.0-32.0) mmol/L Anion Gap (7-15) meq/L BUN (7-18) mg/dL Creatinine (0.51-1.17) mg/dL Est Cr Clr Drug Dosing mL/min Estimated GFR (MDRD) mL/min Glucose (70-99) mg/dL POC Glucose 315 H 460 H* (70-99) mg/dL Lactic Acid (0.4-2.0) mmol/L Calcium (8.5-10.1) mg/dL Magnesium (1.8-2.4) mg/dL Total Bilirubin (0.2-1.0) mg/dL Direct Bilirubin (0.0-0.2) mg/dL AST (15-37) U/L ALT (12-78) U/L Alkaline Phosphatase (46-116) IU/L Total Protein (6.4-8.2) g/dL Albumin (3.4-5.0) g/dL Procalcitonin 0.24 H ng/mL TSH, Ultra Sensitive (0.358-3.740) mIU/mL 07/05/21 07/05/21 07/06/21 Range/Units 21:01 23:57 07:28 WBC (4.0-10.2) K/uL RBC (3.77-5.09) M/uL Hgb (11.7-15.5) g/dL Hct (34.0-46.0) % MCV (84.0-98.0) fL MCH (28.2-33.3) pg MCHC (31.7-36.0) g/dL RDW (11.2-14.1) % Plt Count (150-350) K/uL Neut % (Auto) (45.0-80.0) % Lymph % (Auto) (10.0-50.0) % [place]illi[place] % (Auto) (2.0-14.0) % Eos % (Auto) (0.0-5.0) % Baso % (Auto) (0.0-2.0) % Neut # (Auto) (1.40-7.00) K/uL Lymph # (Auto) (0.50-3.50) K/uL [place]illi[place] # (Auto) (0.00-1.00) K/uL Eos # (Auto) (0.00-0.50) K/uL Baso # (Auto) (0.00-0.20) K/uL D-Dimer, Quantitative (0-400) ng/mL Sodium 137 (136-145) mmol/L Potassium 3.7 (3.5-5.1) mmol/L Chloride 100 (98-107) mmol/L Carbon Dioxide 29.3 (21.0-32.0) mmol/L Anion Gap 7.7 (7-15) meq/L BUN 11 (7-18) mg/dL Creatinine 0.75 (0.51-1.17) mg/dL Est Cr Clr Drug Dosing 62.69 mL/min Estimated GFR (MDRD) > 60 mL/min Glucose 147 H (70-99) mg/dL POC Glucose 323 H 251 H (70-99) mg/dL Lactic Acid (0.4-2.0) mmol/L Calcium 9.7 (8.5-10.1) mg/dL Magnesium 1.5 L (1.8-2.4) mg/dL Total Bilirubin 0.6 (0.2-1.0) mg/dL Direct Bilirubin 0.2 (0.0-0.2) mg/dL AST 37 (15-37) U/L ALT 39 (12-78) U/L Alkaline Phosphatase 107 (46-116) IU/L Total Protein 7.5 (6.4-8.2) g/dL Albumin 2.8 L (3.4-5.0) g/dL Procalcitonin ng/mL TSH, Ultra Sensitive 2.923 (0.358-3.740) mIU/mL 07/06/21 07/06/21 07/06/21 Range/Units 07:28 07:28 07:28 WBC 9.6 (4.0-10.2) K/uL RBC 5.34 H (3.77-5.09) M/uL Hgb 15.0 D (11.7-15.5) g/dL Hct 44.5 (34.0-46.0) % MCV 83.3 L (84.0-98.0) fL MCH 28.1 L (28.2-33.3) pg MCHC 33.7 (31.7-36.0) g/dL RDW 13.9 (11.2-14.1) % Plt Count 267 (150-350) K/uL Neut % (Auto) 87.9 H (45.0-80.0) % Lymph % (Auto) 8.2 L (10.0-50.0) % Gilliam % (Auto) 2.8 (2.0-14.0) % Eos % (Auto) 1.0 (0.0-5.0) % Baso % (Auto) 0.1 (0.0-2.0) % Neut # (Auto) 8.46 H (1.40-7.00) K/uL Lymph # (Auto) 0.79 (0.50-3.50) K/uL Gilliam # (Auto) 0.27 (0.00-1.00) K/uL Eos # (Auto) 0.10 (0.00-0.50) K/uL Baso # (Auto) 0.01 (0.00-0.20) K/uL D-Dimer, Quantitative 315 (0-400) ng/mL Sodium (136-145) mmol/L Potassium (3.5-5.1) mmol/L Chloride (98-107) mmol/L Carbon Dioxide (21.0-32.0) mmol/L Anion Gap (7-15) meq/L BUN (7-18) mg/dL Creatinine (0.51-1.17) mg/dL Est Cr Clr Drug Dosing mL/min Estimated GFR (MDRD) mL/min Glucose (70-99) mg/dL POC Glucose (70-99) mg/dL Lactic Acid 2.9 H (0.4-2.0) mmol/L Calcium (8.5-10.1) mg/dL Magnesium (1.8-2.4) mg/dL Total Bilirubin (0.2-1.0) mg/dL Direct Bilirubin (0.0-0.2) mg/dL AST (15-37) U/L ALT (12-78) U/L Alkaline Phosphatase (46-116) IU/L Total Protein (6.4-8.2) g/dL Albumin (3.4-5.0) g/dL Procalcitonin ng/mL TSH, Ultra Sensitive (0.358-3.740) mIU/mL Med Orders - Current: Current Medications Acetaminophen (Acetaminophen 325 Mg Tab) 650 mg PO Q4H PRN PRN Reason: analgesia/fever Last Admin: 07/06/21 08:25 Dose: 650 mg Documented by: Albuterol (Albuterol 6.7 Gm Inhaler) 0 gm INH Q2H PRN PRN Reason: Shortness of Breath Albuterol/Ipratropium (Albuterol/Ipratropium 3.0-0.5 Mg/3 Ml Neb Soln) 3 ml NEB Q4HRRT [facility] Last Admin: 07/06/21 08:04 Dose: 3 ml Documented by: Benzonatate (Benzonatate 100 Mg Cap) 100 mg PO TID [facility] Last Admin: 07/06/21 08:02 Dose: 100 mg Documented by: Calcium Carbonate/Glycine (Calcium Carbonate 500 Mg Tab.Chew) 500 mg PO Q4H PRN PRN Reason: Dyspepsia Dexamethasone (Dexamethasone 2 Mg Tab) 6 mg PO DAILY [facility] Last Admin: 07/06/21 08:02 Dose: 6 mg Documented by: Dextrose/Water (50% Dextrose In Water 50 Ml Syringe) 50 ml IVPUSH ASDIRECTED PRN PRN Reason: Hypoglycemia Enoxaparin Sodium (Enoxaparin 40 Mg/0.4 Ml Syringe) 40 mg SUBCUT Q12H [facility] Last Admin: 07/05/21 21:07 Dose: 40 mg Documented by: Glipizide (Glipizide 5 Mg Tab) 5 mg PO BID [facility] Last Admin: 07/06/21 08:05 Dose: 5 mg Documented by: Glucagon (Glucagon,Human Recombinant 1 Mg Vial) 1 mg IM ASDIRECTED PRN PRN Reason: Hypoglycemia Guaifenesin (Guaifenesin 600 Mg Tab.Er) 1,200 mg PO BID@0800,2200 [facility] Last Admin: 07/06/21 08:01 Dose: 1,200 mg Documented by: Magnesium Sulfate/Dextrose 1 (gm/ Premix) 100 mls @ 100 mls/hr IV ONETIME ONE Stop: 07/06/21 11:41 Insulin Glargine (Insulin Glarg,Human.Rec.Analog 100 Unit/Ml) 20 unit SUBCUT DAILY [facility] Last Admin: 07/06/21 08:06 Dose: 20 unit Documented by: Insulin Human Regular (Insulin Regular, Human 100 Units/Ml 3 Ml Vial) 0 unit SUBCUT TIDAC [facility]; Protocol Last Admin: 07/06/21 08:05 Dose: Not Given Documented by: Levothyroxine Sodium (Levothyroxine 112 Mcg Tab) 112 mcg PO ACBREAKFAST [facility] Last Admin: 07/06/21 08:02 Dose: 112 mcg Documented by: Lisinopril (Lisinopril 10 Mg Tab) 10 mg PO DAILY [facility] Last Admin: 07/06/21 08:26 Dose: 10 mg Documented by: Magnesium Hydroxide (Magnesium Hydroxide 400 Mg/5 Ml Susp 30 Ml Cup) 30 ml PO BID PRN PRN Reason: Constipation Metformin HCl (Metformin 500 Mg Tab) 1,000 mg PO BIDMEALS [facility] Last Admin: 07/06/21 08:05 Dose: 1,000 mg Documented by: Methyl Salicylate (Menthol/Methyl Salicylate 85 Gm Tube) 0 gm TOP QID PRN PRN Reason: Pain (mild 1-3) Morphine Sulfate (Morphine 2 Mg/Ml Syringe) 2 mg .XX Q4H PRN PRN Reason: Hypoxia, Shortness of Breath Last Admin: 07/06/21 08:03 Dose: 2 mg Documented by: Nystatin (Nystatin Crm 30 Gm Tube) 0 gm TOP QID PRN PRN Reason: Itching Last Admin: 07/06/21 08:26 Dose: 1 applic Documented by: Sodium Chloride (Sodium Chloride 0.9% 10 Ml Syringe) 10 ml FLUSH ASDIRECTED PRN PRN Reason: to keep open Last Admin: 07/05/21 21:19 Dose: 10 ml Documented by: Sodium Chloride (Sodium Chloride 0.9% Inhalation Soln 3 Ml Neb) 3 ml INH Q4H PRN PRN Reason: Hypoxia, Shortness of breath Last Admin: 07/06/21 08:03 Dose: 3 ml Documented by: Sodium Chloride (Sodium Chloride 0.9% 10 Ml Syringe) 10 ml FLUSH [facility] Last Admin: 07/06/21 08:03 Dose: 10 ml Documented by: Discontinued Medications Albuterol (Albuterol 6.7 Gm Inhaler) 0 gm INH Q4H PRN PRN Reason: Shortness of Breath Last Admin: 07/03/21 17:17 Dose: 2 inhaler Documented by: Albuterol/Ipratropium (Albuterol/Ipratropium 4 Gm Inhalation [place]) 0 gm INH QID [facility] Last Admin: 07/04/21 17:06 Dose: Not Given Documented by: Albuterol/Ipratropium (Albuterol/Ipratropium 3.0-0.5 Mg/3 Ml Neb Soln) 3 ml NEB Q4HR PRN PRN Reason: Shortness of Breath Last Admin: 07/04/21 21:13 Dose: 3 ml Documented by: Albuterol/Ipratropium (Albuterol/Ipratropium 4 Gm Inhalation [place]) 0 gm INH QID@0800,1200,1800,2200 [facility] Last Admin: 07/05/21 17:27 Dose: 2 inhalation Documented by: Dexamethasone (Dexamethasone 2 Mg Tab) 2 mg PO BID [facility] Last Admin: 07/02/21 11:51 Dose: Not Given Documented by: Dextrose/Water (50% Dextrose In Water 50 Ml Syringe) 50 ml IVPUSH ASDIRECTED PRN PRN Reason: Hypoglycemia Dextrose/Water (50% Dextrose In Water 50 Ml Syringe) 50 ml IVPUSH ASDIRECTED PRN PRN Reason: Hypoglycemia Glucagon (Glucagon,Human Recombinant 1 Mg Vial) 1 mg IM ASDIRECTED PRN PRN Reason: Hypoglycemia Guaifenesin (Guaifenesin 600 Mg Tab.Er) 1,200 mg PO BID@0800,2000 [facility] Last Admin: 07/04/21 07:55 Dose: 1,200 mg Documented by: Remdesivir 200 mg/ Sodium (Chloride) 250 mls @ 250 mls/hr IV ONETIME ONE Stop: 07/01/21 20:54 Last Admin: 07/01/21 20:49 Dose: 250 mls/hr Documented by: Remdesivir 100 mg/ Sodium (Chloride) 100 mls @ 100 mls/hr IV Q24H [facility] Last Admin: 07/04/21 10:21 Dose: 100 mls/hr Documented by: Remdesivir 100 mg/ Sodium (Chloride) 100 mls @ 100 mls/hr IV Q24H [facility] Stop: 07/05/21 12:59 Last Admin: 07/05/21 11:52 Dose: 100 mls/hr Documented by: Insulin Glargine (Insulin Glarg,Human.Rec.Analog 100 Unit/Ml) 10 unit SUBCUT DAILY [facility] Last Admin: 07/04/21 08:07 Dose: 10 unit Documented by: Insulin Glargine (Insulin Glarg,Human.Rec.Analog 100 Unit/Ml) 15 unit SUBCUT DAILY [facility] Last Admin: 07/05/21 07:51 Dose: 15 units Documented by: Insulin Glargine (Insulin Glarg,Human.Rec.Analog 100 Unit/Ml) 5 unit SUBCUT ONETIME ONE Stop: 07/04/21 08:46 Last Admin: 07/04/21 10:18 Dose: 5 units Documented by: Insulin Human Regular (Insulin Regular, Human 100 Units/Ml 3 Ml Vial) 12 unit SUBCUT ONETIME ONE Stop: 07/05/21 17:30 Last Admin: 07/05/21 17:38 Dose: 12 units Documented by: Insulin Human Regular (Insulin Regular, Human 100 Units/Ml 3 Ml Vial) 12 unit SUBCUT ONETIME ONE Stop: 07/05/21 21:17 Last Admin: 07/05/21 21:16 Dose: 12 units Documented by: Morphine Sulfate (Morphine 2 Mg/Ml Syringe) 2 mg .XX ONETIME ONE Stop: 07/03/21 09:36 Last Admin: 07/03/21 10:04 Dose: 2 mg Documented by: Sodium Chloride (Sodium Chloride 0.9% Inhalation Soln 3 Ml Neb) 3 ml INH ONETIME ONE Stop: 07/03/21 09:36 Last Admin: 07/03/21 10:03 Dose: 3 ml Documented by:
[2021-07-06] MEDS: Sodium Chloride 0.9% 10 ML Syringe FLUSH PRN (11:20)
[2021-07-06] MEDS: Enoxaparin 40 MG/0.4 ML Syringe SUBCUT SCH (11:20)
== END 2021-07-06 11:50 | DRG 137 ==
LOC: LL.ED 19:52 → LL.MS 22:43
PROVIDERS: ADMIT Family Medicine; ATTEND Family Medicine
PROC: 8E0ZXY6 Isolation (ICD-10-PCS; principal; 2021-07-01)
PROC: XW033E5 Introduction of Remdesivir Anti-infective into Peripheral Vein, Percutaneous Approach, New Technology Group 5 (ICD-10-PCS; 2021-07-01)
PROC: 5A0955A Assistance with Respiratory Ventilation, Greater than 96 Consecutive Hours, High Flow/Velocity Cannula (ICD-10-PCS; 2021-07-01)
PROC: 3E0DX3Z Introduction of Anti-inflammatory into Mouth and Pharynx, External Approach (ICD-10-PCS; 2021-07-02)
DX: U07.1 COVID-19 (principal); E66.9 Obesity, unspecified; F32.9 Major depressive disorder, single episode, unspecified; E78.5 Hyperlipidemia, unspecified; E03.9 Hypothyroidism, unspecified; E83.42 Hypomagnesemia; Z68.41 Body mass index [BMI] 40.0-44.9, adult
CPT/HCPCS: 36415; 71045; 80053; 81001; 82248; 82550; 82728; 82803; 82947; 83605; 83615; 83735; 84145; 84443; 85025; 85379; 85610; 85730; 86140; 94640; 94660; 99223; 99232; 99233; 99239; 99285-25; A9270-GY; J1650; J1815-GY; J2270; J3475; J7050; J7620-GY; J8540